=== PATIENT | male | born 1980 | race Caucasian/White ===

== ENCOUNTER 2016-11-10 14:51 | Emergency (ER) | payer OTHER ==
[~2016-11-10] VITALS: Ht 172.7 cm; Wt 95.3 kg
[2016-11-10] MEDS ORDERED: NS 1,000 ML IV ONE (16:30)
[2016-11-10] MEDS ORDERED: KETOROLAC 30 MG/ML VIAL (J1885) IV ONE (16:30)
[2016-11-10 16:33] LABS: ANION GAP 9 MEQ/L (8-16); BLOOD UREA NITROGEN 7 MG/DL (7-18); CALCIUM LEVEL 8.8 MG/DL (8.5-10.1); CARBON DIOXIDE LEVEL 25 MEQ/L (21-32); CHLORIDE LEVEL 109 MEQ/L (98-107); CREATININE FOR GFR 1.11 MG/DL (0.70-1.30); GLOMERULAR FILTRATION RATE > 60.0 (>60); GLUCOSE, FASTING 86 MG/DL (70-105); POTASSIUM SERUM 3.7 MEQ/L (3.5-5.1); SODIUM LEVEL 143 MEQ/L (136-145)
[2016-11-10 16:43] LABS: PROLACTIN 8.9 NG/ML (2.1-17.7)
[2016-11-10 17:01] LABS: BASO % 0.4 % (0.0-1.0); EOS # 0.3 K/mm3 (0.0-0.50); EOS % 2.7 % (0.0-3.0); LARGE UNSTAINED CELL # 0.2 K/mm3 (0.0-0.4); LARGE UNSTAINED CELL % 2.1 % (0.0-4.0); LYMPH # 2.4 K/mm3 (1.5-4.5); LYMPH % 25.7 % (24.0-44.0); MEAN CORPUSCULAR HEMOGLOBIN 29.7 pg (27.0-33.0); MEAN CORPUSCULAR HGB CONC 34.1 g/dl (32.0-36.5); MEAN CORPUSCULAR VOLUME 87.2 fl (80.0-96.0); MONO # 0.8 K/mm3 (0.0-0.8); MONO % 8.6 % (0.0-5.0); NEUTROPHILS # 5.6 K/mm3 (1.8-7.7); NEUTROPHILS % 60.5 % (36.0-66.0); PLATELET COUNT, AUTOMATED 267 k/mm3 (150-450); WHITE BLOOD COUNT 9.3 K/mm3 (4.0-10.0)
--- NOTE | 2016-11-10 17:02 | REP ---
Head CT without contrast: History: New onset seizure. Comparison study: No comparison study. CT findings: Bone window settings demonstrate an intact bony calvarium. There is no evidence of skull fracture or incidental bony calvarial lesion. The visualized paranasal sinuses appear clear. No intraorbital abnormality is seen. On soft tissue window setting images; the lateral, third, and fourth ventricles are normal in size and position. Franco-white differentiation pattern is normal above and below the tentorium. There are is no evidence of intracranial hemorrhage. No mass, edema, infarction, or midline shift is seen. No extra-axial fluid collection is appreciated. Impression: Negative noncontrast head CT. Signed by Darien Millan MD 11/10/2016 04:54 P
[2016-11-10] MEDS ORDERED: tiZANidine 4 MG TAB PO ONE (18:00)
[2016-11-10] MEDS ORDERED: NORCO, ANEXSIA 5/325MG TABLET (HYDROcodone/ACETAMINOPHEN) PO ONE (18:00)
[2016-11-10 18:30] LABS: METHADONE URINE NEGATIVE (NEGATIVE)
[2016-11-10 19:14] VITALS: BP 138/72
== END 2016-11-10 19:17 | disposition home or self-care (01) ==
LOC: EDBD 14:51 → M ED 17:09
DX: R25.8 Other abnormal involuntary movements (principal); F31.9 Bipolar disorder, unspecified; F41.9 Anxiety disorder, unspecified; F43.10 Post-traumatic stress disorder, unspecified; M54.9 Dorsalgia, unspecified; F17.210 Nicotine dependence, cigarettes, uncomplicated
CPT/HCPCS: 70450; 80048; 80306; 84146; 85025; 96361; 96374; 99284; J1885

== ENCOUNTER → 2018-12-21 | Outpatient (REF) ==
--- NOTE | 2018-12-21 14:30 | REP ---
THORACIC SPINE, THREE VIEWS: HISTORY: Degenerative disc disease. The patient is status post T7 to T11 posterior spinal fusion. Metal hardware is present. There is an old compression fracture of the T9 vertebral body with mild height loss. There is no acute fracture or subluxation. The intervertebral discs are normal in height. Anterior osteophytes are present in the mid thoracic spine. IMPRESSION: The patient is status post T7 to T11 posterior spinal fusion. There is anatomic alignment. Electronically Signed by Prakash Shepard MD 12/21/2018 02:45 P
== END ==
LOC: M SMT 13:34
PROVIDERS: ATTEND Internal Medicine
DX: Z02.71 Encounter for disability determination (principal)

== ENCOUNTER → 2019-01-01 | Outpatient (CLI) | payer OTHER ==
[2019-01-01 10:45] LABS: APPEARANCE, URINE HAZY (CLEAR); BACTERIA, URINE AUTO NEGATIVE (NEGATIVE); BILIRUBIN, URINE AUTO NEGATIVE (NEGATIVE); BLOOD, URINE BLOOD NEGATIVE (NEGATIVE); COLOR, URINE AMBER (YELLOW); GLUCOSE, URINE (UA) AUTO NEGATIVE (NEGATIVE); KETONE, URINE AUTO TRACE mg/dL (NEGATIVE); LEUKOCYTE ESTERASE, URINE AUTO NEGATIVE (NEGATIVE); MUCUS, URINE SMALL (NEGATIVE); NITRITE, URINE AUTO NEGATIVE (NEGATIVE); PROTEIN, URINE AUTO NEGATIVE (NEGATIVE); RBC, URINE AUTO 1 /HPF (0-3); SPECIFIC GRAVITY URINE AUTO 1.028 (1.002-1.035); SQUAMOUS EPITHELIAL CELL UR AU 0 /HPF (0-6); WBC, URINE AUTO 1 /HPF (0-3)
[2019-01-01 10:57] LABS: BASO # 0.1 10^3/uL (0.0-0.2); BASO % 0.6 % (0.0-1.0); EOS # 0.6 10^3/uL (0.0-0.50); EOS % 6.5 % (0.0-3.0); HEMATOCRIT 45.8 % (42.0-52.0); HEMOGLOBIN 15.3 g/dl (13.5-17.5); LYMPH # 2.7 10^3/uL (1.5-4.5); MEAN CORPUSCULAR HEMOGLOBIN 30.8 pg (27.0-33.0); MEAN CORPUSCULAR HGB CONC 33.4 g/dl (32.0-36.5); MEAN CORPUSCULAR VOLUME 92.3 fl (80.0-96.0); MONO % 11.3 % (0.0-5.0); NEUTROPHILS # 4.3 10^3/uL (1.8-7.7); NEUTROPHILS % 49.8 % (36.0-66.0); PLATELET COUNT, AUTOMATED 224 10^3/uL (150-450); RED BLOOD COUNT 4.96 10^6/uL (4.30-6.10); WHITE BLOOD COUNT 8.6 10^3/uL (4.0-10.0)
[2019-01-01 11:24] LABS: ALBUMIN 3.7 GM/DL (3.2-5.2); ALT/SGPT 33 U/L (12-78); BILIRUBIN,TOTAL 0.4 MG/DL (0.2-1.0); BLOOD UREA NITROGEN 11 MG/DL (7-18); CALCIUM LEVEL 8.6 MG/DL (8.5-10.1); CARBON DIOXIDE LEVEL 28 MEQ/L (21-32); CHLORIDE LEVEL 108 MEQ/L (98-107); CREATININE FOR GFR 0.88 MG/DL (0.70-1.30); GLOMERULAR FILTRATION RATE > 60.0 (>60); GLUCOSE, FASTING 100 MG/DL (70-100); SODIUM LEVEL 142 MEQ/L (136-145); TOTAL PROTEIN 6.4 GM/DL (6.4-8.2); VALPROIC ACID (DEPAKOTE) 38.3 UG/ML (50.0-100.0)
[2019-01-02 10:22] LABS: HEPATITIS B SURFACE ANTIGEN NEGATIVE (NEGATIVE)
[2019-01-02 10:49] LABS: HEPATITIS C VIRUS ABY INDEX < 0.0 INDEX (<0.8)
[2019-01-02 10:50] LABS: HEPATITIS B CORE ANTIBODY IGM NEGATIVE (NEGATIVE)
[2019-01-02 10:52] LABS: HEPATITIS A ANTIBODY IGM NEGATIVE (NEGATIVE)
== END ==
LOC: M LAB 08:52
PROVIDERS: ATTEND Physician Assistant Medical
DX: Z02.2 Encounter for examination for admission to residential institution (principal)

== ENCOUNTER → 2019-01-01 | Outpatient (CLI) | payer OTHER ==
[2019-01-01 10:00] LABS: HEMATOCRIT 44.7 % (42.0-52.0); MEAN CORPUSCULAR HEMOGLOBIN 30.3 pg (27.0-33.0); MEAN CORPUSCULAR HGB CONC 33.6 g/dl (32.0-36.5); MEAN CORPUSCULAR VOLUME 90.3 fl (80.0-96.0); PLATELET COUNT, AUTOMATED 227 10^3/uL (150-450); RED BLOOD COUNT 4.95 10^6/uL (4.30-6.10); WHITE BLOOD COUNT 8.2 10^3/uL (4.0-10.0)
[2019-01-01 10:31] LABS: ALBUMIN 3.8 GM/DL (3.2-5.2); ALT/SGPT 37 U/L (12-78); BILIRUBIN,TOTAL 0.4 MG/DL (0.2-1.0); BLOOD UREA NITROGEN 10 MG/DL (7-18); CALCIUM LEVEL 8.6 MG/DL (8.5-10.1); CARBON DIOXIDE LEVEL 28 MEQ/L (21-32); CHLORIDE LEVEL 109 MEQ/L (98-107); CREATININE FOR GFR 0.95 MG/DL (0.70-1.30); GLOMERULAR FILTRATION RATE > 60.0 (>60); GLUCOSE, FASTING 99 MG/DL (70-100); POTASSIUM SERUM 3.9 MEQ/L (3.5-5.1); SODIUM LEVEL 143 MEQ/L (136-145); TOTAL PROTEIN 6.5 GM/DL (6.4-8.2)
[2019-01-01 12:19] LABS: CHLAMYDIA DNA AMPLIFICATION NEGATIVE (NEGATIVE); GC DNA AMPLIFICATION NEGATIVE (NEGATIVE)
--- NOTE | 2019-01-01 20:46 | ECGEPIP ---
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 Clincal correlation advised Electronically Signed on 01-01-2019 20:46:31 EDT by Eddie Ch
[2019-01-02 10:25] LABS: HEPATITIS B SURFACE ANTIGEN NEGATIVE (NEGATIVE)
[2019-01-02 10:53] LABS: HEPATITIS C VIRUS ABY INDEX < 0.0 INDEX (<0.8)
[2019-01-02 11:05] LABS: HIV 1&2 SCREEN CENTAUR NEGATIVE (NEGATIVE)
== END ==
LOC: M LAB 08:55
PROVIDERS: ATTEND Family Medicine
DX: F11.20 Opioid dependence, uncomplicated (principal)

== ENCOUNTER → 2019-01-10 | Outpatient (CLI) | payer OTHER ==
[2019-01-10 17:07] LABS: FREE T4 0.69 NG/DL (0.76-1.46); THYROID STIMULATING HORMONE 1.54 uIU/ML (0.358-3.740); VALPROIC ACID (DEPAKOTE) 56.3 UG/ML (50.0-100.0)
== END ==
LOC: M LAB 15:52
PROVIDERS: ATTEND Nurse Practitioner Family
DX: Z51.81 Encounter for therapeutic drug level monitoring (principal)

== ENCOUNTER 2019-02-07 12:39 | Emergency (ER) | payer OTHER ==
[~2019-02-07] VITALS: Ht 172.7 cm; Wt 98.6 kg
[~2019-02-07 12:39] MED LIST: BUSP15TA47 PO; BUSPAR; DEPA1TAB3 PO; GABA-845 PO; MUCI600T31 PO; NALT50TA4 PO; NAPR-837 PO; PROZ40CA PO; SERO1TAB PO
[2019-02-07] MEDS ORDERED: PROP60TA14 PO (12:47)
[2019-02-07] MEDS ORDERED: NS 1,000 ML IV ONE (13:15)
[2019-02-07] MEDS ORDERED: IPRATROPIUM 0.5MG/ALBUTEROL 2.5MG INH SOL UD 3ML (DUONEB)(J7620) NEB ONE (13:15)
[2019-02-07] MEDS ORDERED: ASPIRIN 81 MG CHEW TABLET PO ONE (13:15)
[2019-02-07 13:35] LABS: BASO # 0.1 10^3/uL (0.0-0.2); BASO % 0.4 % (0.0-1.0); EOS # 0.3 10^3/uL (0.0-0.50); HEMATOCRIT 46.1 % (42.0-52.0); HEMOGLOBIN 15.6 g/dl (13.5-17.5); LYMPH # 3.6 10^3/uL (1.5-4.5); LYMPH % 22.2 % (24.0-44.0); MEAN CORPUSCULAR HEMOGLOBIN 31.3 pg (27.0-33.0); MEAN CORPUSCULAR HGB CONC 33.8 g/dl (32.0-36.5); MEAN CORPUSCULAR VOLUME 92.6 fl (80.0-96.0); MONO # 1.5 10^3/uL (0.0-0.8); MONO % 9.1 % (0.0-5.0); NEUTROPHILS # 10.6 10^3/uL (1.8-7.7); NEUTROPHILS % 65.4 % (36.0-66.0); PLATELET COUNT, AUTOMATED 257 10^3/uL (150-450); RED BLOOD COUNT 4.98 10^6/uL (4.30-6.10); WHITE BLOOD COUNT 16.1 10^3/uL (4.0-10.0)
--- NOTE | 2019-02-07 14:12 | REP ---
CHEST, TWO VIEWS: Two views of the chest are performed. There are no prior studies. There is no acute infiltrate or pulmonary edema. The heart is normal in size. The mediastinal silhouette is unremarkable. Metallic rods and screws are seen posteriorly in the mid to lower thoracic spine. There is mild compression deformity of what appears to be the T9 vertebral body. This is unchanged since 12/21/2018. IMPRESSION: No acute pulmonary disease. Electronically Signed by Trey Franco MD 02/09/2019 10:16 A
[2019-02-07] MEDS ORDERED: AZITHROMYCIN 250 MG TAB PO ONE (15:00)
[2019-02-07] MEDS ORDERED: PROAAER10 INH (15:19)
[2019-02-07] MEDS ORDERED: ZITHTAB PO (15:19)
[2019-02-07 15:26] VITALS: BP 139/91
[2019-02-07 15:52] LABS: BLOOD UREA NITROGEN 17 MG/DL (7-18); CALCIUM LEVEL 8.3 MG/DL (8.5-10.1); CARBON DIOXIDE LEVEL 26 MEQ/L (21-32); CHLORIDE LEVEL 110 MEQ/L (98-107); CPK CREATINE PHOSPHOKINASE 225 U/L (39-308); CREATININE FOR GFR 0.97 MG/DL (0.70-1.30); GLOMERULAR FILTRATION RATE > 60.0 (>60); GLUCOSE, FASTING 80 MG/DL (70-100); MB/CK RELATIVE INDEX 0.89 (< OR =4); POTASSIUM SERUM 4.7 MEQ/L (3.5-5.1); SODIUM LEVEL 141 MEQ/L (136-145); TROPONIN I < 0.02 NG/ML (< 0.10)
--- NOTE | 2019-02-07 19:30 | ECGEPIP ---
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
== END 2019-02-07 16:17 | disposition home or self-care (01) ==
LOC: M ED 12:39
DX: J20.9 Acute bronchitis, unspecified (principal); J98.01 Acute bronchospasm; I10 Essential (primary) hypertension; J44.9 Chronic obstructive pulmonary disease, unspecified; F41.9 Anxiety disorder, unspecified; R51 Headache; F31.9 Bipolar disorder, unspecified; F43.10 Post-traumatic stress disorder, unspecified; Z72.0 Tobacco use; F14.21 Cocaine dependence, in remission; Z82.49 Family history of ischemic heart disease and other diseases of the circulatory system; Z79.899 Other long term (current) drug therapy

== ENCOUNTER 2019-09-08 21:28 | Emergency (ER) | payer MEDICAID, OTHER, SELFPAY ==
[~2019-09-08] VITALS: Ht 172.7 cm; Wt 106.4 kg
[~2019-09-08 21:28] MED LIST changes: +PROAAER10 INH; +PROP60TA14 PO; +ZITHTAB PO
[2019-09-08] MEDS ORDERED: chlorproMAZINE 25 MG TAB (Q0161) PO ONE (22:45)
[2019-09-08 23:12] LABS: AMPHETAMINES LEVEL URINE NEGATIVE (NEGATIVE); BARBITURATES URINE NEGATIVE (NEGATIVE); BENZODIAZEPINES URINE NEGATIVE (NEGATIVE); CANNABINOIDS URINE NEGATIVE (NEGATIVE); COCAINE METABOLITE URINE NEGATIVE (NEGATIVE); METHADONE URINE NEGATIVE (NEGATIVE); OPIATES URINE NEGATIVE (NEGATIVE); PHENCYCLIDINE URINE NEGATIVE (NEGATIVE)
[2019-09-08 23:39] LABS: HEMATOCRIT 49.7 % (42.0-52.0); HEMOGLOBIN 16.8 g/dl (13.5-17.5); MEAN CORPUSCULAR HEMOGLOBIN 29.1 pg (27.0-33.0); MEAN CORPUSCULAR HGB CONC 33.8 g/dl (32.0-36.5); PLATELET COUNT, AUTOMATED 300 10^3/uL (150-450); RED BLOOD COUNT 5.78 10^6/uL (4.30-6.10); WHITE BLOOD COUNT 11.7 10^3/uL (4.0-10.0)
[2019-09-08] MEDS ORDERED: CYCL10TA PO (23:54)
[2019-09-09 00:13] LABS: ACETAMINOPHEN LEVEL < 2.0 UG/ML (10.0-30.0); ALBUMIN 3.9 GM/DL (3.2-5.2); ALT/SGPT 39 U/L (12-78); BILIRUBIN,DIRECT 0.1 MG/DL (0.0-0.2); BILIRUBIN,TOTAL 0.2 MG/DL (0.2-1.0); BLOOD UREA NITROGEN 9 MG/DL (7-18); CALCIUM LEVEL 8.8 MG/DL (8.5-10.1); CARBON DIOXIDE LEVEL 27 MEQ/L (21-32); CHLORIDE LEVEL 108 MEQ/L (98-107); CREATININE FOR GFR 0.97 MG/DL (0.70-1.30); ETHYL ALCOHOL (ETHANOL) < 0.003 % (0.000-0.010); GLOMERULAR FILTRATION RATE > 60.0 (>60); GLUCOSE, FASTING 95 MG/DL (70-100); POTASSIUM SERUM 3.6 MEQ/L (3.5-5.1); SALICYLATE LEVEL 2.8 MG/DL (5.0-30.0); SODIUM LEVEL 140 MEQ/L (136-145); TOTAL PROTEIN 7.4 GM/DL (6.4-8.2)
[2019-09-09] MEDS ORDERED: HALOPERIDOL 5 MG/ML VIAL (J1630) IM STA (00:27)
[2019-09-09] MEDS ORDERED: diphenhydrAMINE INJ 50MG/ML VIAL (J1200) IM ONE (00:30)
[2019-09-09 03:53] VITALS: BP 121/75
--- NOTE | 2019-09-09 19:31 | ECGEPIP ---
[facility] - ED Test Date: 2019-09-09 Pat Name: RYAN MITTAL Department: Room: - Gender: Male Support Assistant: CHRISTINA : 1980 Requested By: ÁNGEL HARRIS Order Number: [id number] Reading MD: Marnie Kwon Measurements Intervals [place] Rate: 80 P: 17 [place]: 144 QRS: 8 QRSD: 100 T: 30 QT: 350 QTc: 404 Interpretive Statements SINUS RHYTHM NONSPECIFIC T-WAVE ABNORMALITY DELAYED R WAVE PROGRESSION CW 02/07/[address] T WAVE CHANGES Electronically Signed on 09-09-2019 19:31:03 EST by Marnie Kwon
== END 2019-09-09 04:00 ==
LOC: M ED 21:28
DX: R45.851 Suicidal ideations (principal); F32.9 Major depressive disorder, single episode, unspecified; F19.10 Other psychoactive substance abuse, uncomplicated; J45.909 Unspecified asthma, uncomplicated; F17.200 Nicotine dependence, unspecified, uncomplicated; Z79.899 Other long term (current) drug therapy
CPT/HCPCS: 36415; 80048; 80076; 80307; 84443; 85027; 93005; 96372; 99285; G0480; J1200; J1630; Q0161

== ENCOUNTER 2020-03-24 11:16 | Inpatient (IN) | payer MEDICAID, OTHER ==
[~2020-03-24] VITALS: Ht 172.7 cm; Wt 93.4 kg
[~2020-03-24 11:16] MED LIST changes: +CYCL-707 PO
[2020-03-24 12:45] LABS: HEMATOCRIT 47.4 % (42.0-52.0); HEMOGLOBIN 16.3 g/dl (13.5-17.5); MEAN CORPUSCULAR HEMOGLOBIN 29.9 pg (27.0-33.0); MEAN CORPUSCULAR HGB CONC 34.4 g/dl (32.0-36.5); PLATELET COUNT, AUTOMATED 289 10^3/uL (150-450); RED BLOOD COUNT 5.45 10^6/uL (4.30-6.10); WHITE BLOOD COUNT 5.1 10^3/uL (4.0-10.0)
[2020-03-24 12:54] LABS: AMPHETAMINES LEVEL URINE NEGATIVE (NEGATIVE); BARBITURATES URINE NEGATIVE (NEGATIVE); BENZODIAZEPINES URINE NEGATIVE (NEGATIVE); CANNABINOIDS URINE NEGATIVE (NEGATIVE); COCAINE METABOLITE URINE NEGATIVE (NEGATIVE); METHADONE URINE NEGATIVE (NEGATIVE); OPIATES URINE NEGATIVE (NEGATIVE); PHENCYCLIDINE URINE NEGATIVE (NEGATIVE)
[2020-03-24 13:05] LABS: ACETAMINOPHEN LEVEL < 2.0 UG/ML (10.0-30.0); ALBUMIN 3.5 GM/DL (3.2-5.2); ALT/SGPT 46 U/L (12-78); BILIRUBIN,DIRECT 0.1 MG/DL (0.0-0.2); BILIRUBIN,TOTAL 0.3 MG/DL (0.2-1.0); BLOOD UREA NITROGEN 8 MG/DL (7-18); CALCIUM LEVEL 8.9 MG/DL (8.5-10.1); CARBON DIOXIDE LEVEL 30 MEQ/L (21-32); CHLORIDE LEVEL 102 MEQ/L (98-107); CREATININE FOR GFR 0.82 MG/DL (0.70-1.30); ETHYL ALCOHOL (ETHANOL) < 0.003 % (0.000-0.010); GLOMERULAR FILTRATION RATE > 60.0 (>60); GLUCOSE, FASTING 79 MG/DL (70-100); POTASSIUM SERUM 3.8 MEQ/L (3.5-5.1); SALICYLATE LEVEL 2.9 MG/DL (5.0-30.0); SODIUM LEVEL 136 MEQ/L (136-145); THYROID STIMULATING HORMONE 0.676 uIU/ML (0.358-3.740); TOTAL PROTEIN 6.9 GM/DL (6.4-8.2)
[2020-03-24] MEDS ORDERED: NICOTINE 21MG/24HR 1 EA TRANSDERMAL TD ONE (14:30)
[2020-03-24] MEDS ORDERED: VITA200021 PO (15:09)
[2020-03-24] MEDS ORDERED: HYDR50CA2 PO (15:09)
[2020-03-24] MEDS ORDERED: TOPI100T9 PO (15:09)
[2020-03-24] MEDS ORDERED: CLONI1TA PO (15:09)
[2020-03-24] MEDS ORDERED: FLUO40CA PO (15:09)
[2020-03-24] MEDS ORDERED: QUET100T2 PO (15:09)
[2020-03-24] MEDS ORDERED: FOLI1TAB11 PO (15:09)
[2020-03-24] MEDS ORDERED: GABA800T4 PO (15:09)
[2020-03-24] MEDS ORDERED: METH27TA5 PO (15:09)
[2020-03-24] MEDS ORDERED: LORazepam 1 MG TAB PO STA (18:37)
[2020-03-24] MEDS ORDERED: ACETAMINOPHEN TAB 650MG DOSE (2X325MG) PO PRN (20:15)
[2020-03-24] MEDS ORDERED: MOM 30ML SUSPENSION UDC PO PRN (20:15)
[2020-03-24] MEDS ORDERED: traZODone 50 MG TAB PO PRN (20:15)
[2020-03-24] MEDS ORDERED: LORazepam 2 MG TAB PO PRN (20:15)
[2020-03-24] MEDS ORDERED: OLANZapine 5 MG TAB PO PRN (20:15)
[2020-03-24] MEDS ORDERED: QUEtiapine FUMARATE 100 MG TAB PO SCH (21:00)
[2020-03-24] MEDS: TOPIRAMATE (TopAMAX) 100 MG TAB PO SCH (21:00)
[2020-03-24] MEDS: cloNIDine 0.1 MG TAB PO SCH (21:00)
[2020-03-24] MEDS: THIAMINE 100 MG TAB PO SCH (21:00)
[2020-03-24] MEDS: hydrOXYzine 50 MG TAB PO SCH (21:00)
[2020-03-24] MEDS: GABAPENTIN 400 MG CAP PO SCH (21:00)
[2020-03-24 23:31] VITALS: BP 120/76
[2020-03-25 06:25] VITALS: BP 106/61
[2020-03-25 06:26] VITALS: BP 106/61
[2020-03-25] MEDS: FLUoxetine 20 MG CAP PO SCH (09:13)
[2020-03-25] MEDS: MULTIVITAMINS/MINERALS THERAP 1 TAB PO SCH (09:13)
[2020-03-25] MEDS: FOLIC ACID 1 MG TAB PO SCH (09:13)
[2020-03-25] MEDS: THIAMINE 100 MG TAB PO SCH ×2 (09:13→21:03)
[2020-03-25] MEDS: cloNIDine 0.1 MG TAB PO SCH ×3 (09:13→21:03)
[2020-03-25] MEDS: GABAPENTIN 400 MG CAP PO SCH ×3 (09:13→21:03)
[2020-03-25] MEDS: TOPIRAMATE (TopAMAX) 100 MG TAB PO SCH ×2 (09:14→21:03)
[2020-03-25] MEDS: hydrOXYzine 50 MG TAB PO SCH ×3 (09:15→21:02)
[2020-03-25 10:00] VITALS: BP 106/61
[2020-03-25] MEDS: NICOTINE 21MG/24HR 1 EA TRANSDERMAL TD SCH (10:45)
--- NOTE | 2020-03-25 14:01 | MHHPEPDOC ---
General Legal Status: 9.27 Chief Complaint Patient is a 39 year old Male who reports having suicidal ideation and suicidal gestures the past 24 hours. He states that he has been burning and hitting himself. He also reports that he has stood in traffic 5 times the past day and a half hoping to get hit by traffic History of Present Illness HISTORY OF THE PRESENT ILLNESS: Patient is a 39 -year-old , male, who . Psychiatric Review of Systems Depression (2 or more weeks): depressed mood, anhedonia, insomnia/hypersomnia, feelings of worthlesness, decreased energy, difficulty concentrating, appetite changes, suicidal thoughts Psychosis: auditory hallucination, paranoia Anxiety: gen/non-specific anxiety Anxiety/ 6 months or more of: easily fatigued, sleep disturbance Past Psychiatric History Previous Psychiatric Diagnosis: Report dxs of PTSD, ADHD, Depression, Bipolar and states "I think I am Schizophrenic too" Previous Psychiatric Admissions: Reports 12+ psychiatric admissions in [facility] Suicide Attempts: reports 6+ suicide gestures and several where he overdosed and was admitted to behavioral health Psychiatric Follow-up: Not current with anyone Psychiatric medications: See medication reconciliation Past Medical History Medical Problems Medical history is unremarkable Surgical history - Lipsotripsy Spinal Surgery with metal rods placed Head Injury: No Seizures: No Hospitalizations: Yes Surgeries: Yes Family Medical/Psychiatric HX Medical Problems Reports his mother with Depression an Anxiety Brother with ETOH History Maternal Grandfather with ETOH HIstory Paternal Uncle Hanged himself and also slit his wrists Both sides of the family with history of Heart Disease, Cancer, Diabetes Psychiatric Disorders: Yes Addiction: Yes Suicide Attemps/Completions: Yes Addiction History nicotine, alcohol, cocaine, amphetamines, methamphetamines, heroin Social History Childhood: Growing up with mother and older brother. He was placed in Foster Care was was in and out of his life Abuse/Trauma: Did not report Current Living Situation: Lives in own apartment. Education: Went to the 7th grade and dropped out of school. Was kicked out of home and he has had various jobs Employment: No current employment at this time. 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 Social Support: Poor Legal: Probation currently, was jailed for 2-3 months for possession of credit cards and [employer] Marital: Single, Not Mental Status Examination General Appearance: unkempt, disheveled, ds/not appear stated age, hospital scubs/clothing, other (appears older than his stated age) Build: average Demeanor: guarded Eye Contact: poor, other (had his eyes closed throughout most of the interview) Activity: slowed Behavior: withdrawn, other (apathetic) Speech: clear, slow, low in volume Mood: depressed Affect: flat Thought Process: logical/linear Thought Content (Delusions): none reported Thought Content (Other): guilty, appropriate, coherent Thought Content (Aggressive): none reported Perception (Hallucinations): auditory Perception (Other): none reported Cognition (Impairment of): none reported Cognition(Intelligence Est.): average Oriented: Alert Insight: fair Judgment: Fair Psychosis: Denies Diagnoses Major Depressive Disorder Recurrent Moderate Stimulant Use Disorder Tobacco Use Disorder A-FIB/CHADSVASC A-FIB History Current/History of A-Fib/PAF?: No Age/Risk Factor Scoring CHADSVASC: CHADSVASC Response (Comments) Value Age Risk Factor Age < 65 years old 0 Gender Risk Factor Male 0 Hx of CHF No 0 Hx of HTN No 0 Hx of Stroke/TIA/or VTE No 0 Hx of Diabetes No 0 Hx of Vascular Disease No 0 Total 0 Treatment Treatment ordered: NONE Assessment Patient will be started on home medications and discharged when he is stable Initial Treatment Plan 1. Patient was admitted on a [9.39] status. 2. Complete history was obtained. 3. With patients permission, family will be contacted and database will be expanded. 4. Patients medication regimen will be reviewed and changed accordingly. 5. Patient will be provided with protected environment. 6. Patient will be treated with individual, group, and milieu therapies. 7. Patient will receive supportive psych-education. 8. Discharge planning will commence immediately. 9. Outpatient follow-up treatment will be strongly recommended. 10. The initial treatment plan will focus initially on: * Depression. * Risk for suicide. ESTIMATED LENGTH OF STAY: - DAYS. TIME SPENT COUNSELING AND COORDINATING INITIAL CARE: minutes. Vital Signs Vital Signs Date Time Temp Pulse Resp B/P (MAP) Pulse Ox O2 Delivery O2 Flow Rate FiO2 03/25/20 09:13 106/61 03/25/20 06:26 97.9 58 12 99 Room Air Medications Scheduled Cholecalciferol (Vitamin D3) (Vitamin D3) 50 Mcg Capsule, 50 MCG PO DAILY, (Reported) Clonidine Hcl (Clonidine HCl) 0.1 Mg Tablet, 0.1 MG PO TID, (Reported) Fluoxetine Hcl (Fluoxetine HCl) 40 Mg Capsule, 40 MG PO DAILY, (Reported) Folic Acid (Folic Acid) 1 Mg Tablet, 1 MG PO DAILY, (Reported) Gabapentin (Gabapentin) 800 Mg Tablet, 800 MG PO TID, (Reported) Hydroxyzine Pamoate (Hydroxyzine Pamoate) 50 Mg Capsule, 50 MG PO TID, (Reported) Methylphenidate HCl (Methylphenidate ER) 27 Mg Tab.er.24, 27 MG PO DAILY, (Reported) Quetiapine Fumarate (Quetiapine Fumarate) 100 Mg Tablet, 100 MG PO QHS, (Repo rted) Topiramate (Topiramate) 100 Mg Tablet, 100 MG PO BID, (Reported) Allergies Coded Allergies: No Known Allergies (Unverified , 02/05/19) THAI FOLEY NP Mar 25, 2020 14:01
[2020-03-25 16:04] VITALS: BP 96/54
--- NOTE | 2020-03-25 16:44 | HPEPDOC ---
[facility] Medical History & Physical Date of Admission Mar 25, 2020 Date of Service: Mar 25, 2020 Attending Physician: GREY BROWN DO History and Physical CHIEF COMPLAINT: Depression HISTORY OF PRESENT ILLNESS: 39 y/o M with PMHx Depression who presents with suicidal ideations. Denies CP/SOB/palpitations. No N/V/Abd pain. PAST MEDICAL HISTORY: As per HPI PAST SURGICAL HISTORY: T9fx s/p patsy placement, lithotripsy SOCIAL HISTORY: Smokes 2-3ppd, no alcohol, uses linnea FAMILY HISTORY: Non contributory ALLERGIES: Please see below. REVIEW OF SYSTEMS: HEENT: Denies sore throat/headache CARDIOVASCULAR: Denies chest pain/palpitations RESPIRATORY: Denies shortness of breath/cough GASTROINTESTINAL: denies nausea/vomiting GENITOURINARY: Denies dysuria/urinary urgency. MUSCULOSKELETAL: Denies myalgias/arthralgias NEUROLOGICAL: Denies any focal weakness HOME MEDICATIONS: Please see below. PHYSICAL EXAMINATION: Vitals: (see below) General: No acute distress, laying comfortably in bed. HEENT: Moist mucous membranes. Neck: No JVD or lymphadenopathy Cardiac: RRR, No murmurs Pulm: Clear to auscultation b/l. No wheezing, rhonchi Abd: NT/ND + BS Ext: No edema or cyanosis LABORATORY DATA: See below. ASSESSMENT/PLAN: 1. Depression - management per psych 2. Tobacco abuse - counseling cessation; nicotine patch 3. h/o lithotripsy 4. polysubstance abuse - cessation counseling Monitor BP closely while on clonidine. DVT Prophy: OOB/Amb Please call with questions. Vital Signs Vital Signs Date Time Temp Pulse Resp B/P (MAP) Pulse Ox O2 Delivery O2 Flow Rate FiO2 03/25/20 16:04 98.2 61 14 96/54 (68) 100 Room Air Home Medications Scheduled Cholecalciferol (Vitamin D3) (Vitamin D3) 50 Mcg Capsule, 50 MCG PO DAILY Clonidine Hcl (Clonidine HCl) 0.1 Mg Tablet, 0.1 MG PO TID Fluoxetine Hcl (Fluoxetine HCl) 40 Mg Capsule, 40 MG PO DAILY Folic Acid (Folic Acid) 1 Mg Tablet, 1 MG PO DAILY Gabapentin (Gabapentin) 800 Mg Tablet, 800 MG PO TID Haloperidol (Haloperidol) 5 Mg Tablet, 5 MG PO QHS for antipsychotic Hydroxyzine Pamoate (Hydroxyzine Pamoate) 50 Mg Capsule, 50 MG PO TID Methylphenidate HCl (Methylphenidate ER) 27 Mg Tab.er.24, 27 MG PO DAILY Topiramate (Topiramate) 100 Mg Tablet, 100 MG PO BID Allergies Coded Allergies: No Known Allergies (Unverified , 02/05/19) A-FIB/CHADSVASC A-FIB History Current/History of A-Fib/PAF?: No CAITLIN BOYCE MD Mar 25, 2020 16:44
[2020-03-25 21:00] VITALS: BP 130/84
[2020-03-25] MEDS: haloperidoL 5 MG TAB PO SCH (21:02)
[2020-03-25] MEDS: QUEtiapine FUMARATE 100 MG TAB PO SCH (21:07)
[2020-03-26 06:00] VITALS: BP 94/50
[2020-03-26] MEDS: NICOTINE 21MG/24HR 1 EA TRANSDERMAL TD SCH (08:38)
[2020-03-26] MEDS: cloNIDine 0.1 MG TAB PO SCH ×3 (08:39→21:06)
[2020-03-26] MEDS: FLUoxetine 20 MG CAP PO SCH (08:39)
[2020-03-26] MEDS: MULTIVITAMINS/MINERALS THERAP 1 TAB PO SCH (08:39)
[2020-03-26] MEDS: THIAMINE 100 MG TAB PO SCH ×2 (08:40→21:06)
[2020-03-26] MEDS: GABAPENTIN 400 MG CAP PO SCH ×3 (08:40→21:06)
[2020-03-26] MEDS: TOPIRAMATE (TopAMAX) 100 MG TAB PO SCH ×2 (08:41→21:06)
[2020-03-26] MEDS: FOLIC ACID 1 MG TAB PO SCH (08:41)
[2020-03-26] MEDS: hydrOXYzine 50 MG TAB PO SCH ×3 (08:41→21:06)
[2020-03-26 11:59] VITALS: BP 139/86
--- NOTE | 2020-03-26 12:51 | MHIPNPDOC ---
[facility] [place] Progress Note Progress Note DATE OF SERVICE: 03/26/20 HISTORY: Kobe is a 39 year old Single, Domiciled Male who self presented to ED for suicidal ideation/gestures of standing in traffic and self-harm gestures of hitting himself. Reporting auditory hallucinations. Reports that he had ingested Emy 4 days ago. VITAL SIGNS: See below. NEW TEST RESULTS: . CURRENT MEDICATIONS: See below. MENTAL STATUS EXAMINATION: Patient is a 39-year old male, who is found sleeping in his room, difficult to arouse. He declined to walk to this provider's office. He continued his interview while lying on his bed, eyes closed most of the interview. He continues to complain of auditory hallucinations. He is not engaged in the conversation, guarded and mildly evasive. Speech: Is Normal tone, monosyllabic, impoverished at times Language skills are Fair Thought processes including: slow Thought content: auditory hallucination. Abstract reasoning, and computation: fair. Description of associations: none Description of abnormal or psychotic thoughts: reports auditory hallucinations and suicidal ideations (mild) today Judgment: poor to fair at times Insight: poor to fair at times Orientation: alert and oriented Recent and remote memory: fairly intact Attention span and concentration: fair Language: fair Fund of knowledge: average Mood: depressed Affect: blunted and flat DIAGNOSES: 1. Major depressive disorder, recurrent, moderate 2. Stimulant Use Disorder (Emy) 3. Tobacco Use ASSESSMENT: Patient appears to be reticent in his interview. Does not voice self harm thoughts but refuses to engage with this provider MANAGEMENT PLAN: Patient is not stable for discharge today, reporting continued auditory hallucinations. He reports no depression or suicidal ideation, but appears to be depressed and disingenuous with the interview questions. TIME SPENT: 30 minutes. Vital Signs Vital Signs Date Time Temp Pulse Resp B/P (MAP) Pulse Ox O2 Delivery O2 Flow Rate FiO2 03/26/20 11:59 48 139/86 03/26/20 06:00 98.0 16 03/25/20 16:04 100 Room Air Current Medications Current Medications Medications (Trade) Dose Ordered Sig/Yg Route PRN Reason Start Time Stop Time Status Last Admin Dose Admin Acetaminophen (Tylenol Tab) 650 mg Q6HP PRN PO HEADACHE or DISCOMFORT 03/24/20 20:15 03/25/20 13:27 Al Hydrox/Mg Hydrox/Simethicone (Mylanta) 30 ml Q4HP PRN PO HEARTBURN/INDIGESTION 03/24/20 20:15 Clonidine HCl (Catapres) 0.1 mg TID PO 03/24/20 21:00 03/26/20 08:39 Fluoxetine HCl (PROzac) 40 mg DAILY PO 03/25/20 09:00 03/26/20 08:39 Folic Acid (Folic Acid) 1 mg DAILY PO 03/25/20 09:00 03/26/20 08:41 Gabapentin (Neurontin) 800 mg TID PO 03/24/20 21:00 03/26/20 08:40 Haloperidol (Haldol) 5 mg QHS PO 03/25/20 21:00 03/25/20 21:02 Home Med (Med Rec Complete!) ASDIRECTED XX 03/24/20 15:15 03/24/20 15:14 DC Hydroxyzine HCl (Atarax) 50 mg TID PO 03/24/20 21:00 03/26/20 08:41 Lorazepam (Ativan) 1 mg STAT STAT PO 03/24/20 18:37 03/24/20 18:39 DC 03/24/20 18:43 Lorazepam (Ativan) 2 mg ASDIRECTED PRN PO SEE PROTOCOL 03/24/20 20:15 Magnesium Hydroxide (Milk Of Magnesia) 30 ml DAILYPRN PRN PO CONSTIPATION 03/24/20 20:15 Multivitamins (Theragram-M) 1 tab DAILY PO 03/25/20 09:00 03/26/20 08:39 Nicotine (Nicoderm Cq 21mg) 1 patch DAILY TD 03/25/20 09:00 03/26/20 08:38 Olanzapine (ZyPREXA) 5 mg Q4HP PRN PO AGITATION 03/24/20 20:15 03/25/20 13:29 DC Quetiapine Fumarate (SEROquel) 100 mg QHS PO 03/24/20 21:00 03/25/20 13:29 DC 03/24/20 21:23 Quetiapine Fumarate (SEROquel) 100 mg QHS PO 03/25/20 21:00 03/25/20 21:07 Thiamine HCl (Thiamine HCl) 100 mg BID PO 03/24/20 21:00 03/27/20 09:01 03/26/20 08:40 Topiramate (TopAMAX) 100 mg BID PO 03/24/20 21:00 03/26/20 08:41 Trazodone HCl (Desyrel) 50 mg QHSP PRN PO INSOMNIA 03/24/20 20:15 Cancel Allergies Coded Allergies: No Known Allergies (Unverified , 02/05/19) THAI FOLEY NP Mar 26, 2020 12:51
[2020-03-26 17:18] VITALS: BP 96/52
[2020-03-26 21:00] VITALS: BP 133/89
[2020-03-26] MEDS: QUEtiapine FUMARATE 100 MG TAB PO SCH (21:06)
[2020-03-26] MEDS: haloperidoL 5 MG TAB PO SCH (21:06)
[2020-03-27 06:15] VITALS: BP 106/67
[2020-03-27] MEDS: NICOTINE 21MG/24HR 1 EA TRANSDERMAL TD SCH (09:43)
[2020-03-27] MEDS: GABAPENTIN 400 MG CAP PO SCH ×3 (09:45→20:46)
[2020-03-27] MEDS: TOPIRAMATE (TopAMAX) 100 MG TAB PO SCH ×2 (09:46→20:45)
[2020-03-27] MEDS: cloNIDine 0.1 MG TAB PO SCH ×3 (09:46→20:45)
[2020-03-27] MEDS: FLUoxetine 20 MG CAP PO SCH (09:46)
[2020-03-27] MEDS: FOLIC ACID 1 MG TAB PO SCH (09:47)
[2020-03-27] MEDS: MULTIVITAMINS/MINERALS THERAP 1 TAB PO SCH (09:47)
[2020-03-27] MEDS: THIAMINE 100 MG TAB PO SCH (09:47)
[2020-03-27] MEDS: hydrOXYzine 50 MG TAB PO SCH ×3 (09:55→20:45)
--- NOTE | 2020-03-27 11:08 | MHIPNPDOC ---
[facility] Progress Note Progress Note DATE OF SERVICE: 03/27/20 HISTORY: Patient is a 39 year old Male who self presented to the Emergency Department and reported auditory hallucinations with suicidal ideations VITAL SIGNS: See below. NEW TEST RESULTS: CURRENT MEDICATIONS: See below. MENTAL STATUS EXAMINATION: Patient is a 39-year old male, who is reporting depression, back pain and states that he is "coming off the drugs." Speech: Is normal rate tone and volume. Language skills are Good. Thought processes including: Linear and Goal Oriented. Thought content: Reports Depression and Anxiety. Abstract reasoning, and computation: Fair. Description of associations: None. Description of abnormal or psychotic thoughts: None Judgment: Fair to good. Insight: Fair to good. Orientation: alert and oriented to person, place, time and situation. Recent and remote memory: Intact. Attention span and concentration: Good. Language: Bulgarian/ good command Fund of knowledge: Average Mood: Depressed Affect: Flat DIAGNOSES: 1. Major Depressive Disorder, Recurrent, Moderate 2. Stimulant Use Disorder 3. Tobacco Use Disorder ASSESSMENT: Patient continues to report depression stemming from drug use and psychosis from the same. He is has minor physical complaints of back pain. Reports that he does not feel stable. Patient is withdrawn at times and guarded. He is spontaneous in his responses but is not engaged in the interview. He reports being depressed and his affect is congruent with this. MANAGEMENT PLAN: Prozac increased to 60 mg. Ordered Ultram 50 mg every 12 hours PRN for back pain. TIME SPENT: 35 minutes. Vital Signs Vital Signs Date Time Temp Pulse Resp B/P (MAP) Pulse Ox O2 Delivery O2 Flow Rate FiO2 03/27/20 09:46 128/87 03/27/20 06:15 97.6 59 18 100 Room Air Current Medications Current Medications Medications (Trade) Dose Ordered Sig/Yg Route PRN Reason Start Time Stop Time Status Last Admin Dose Admin Acetaminophen (Tylenol Tab) 650 mg Q6HP PRN PO HEADACHE or DISCOMFORT 03/24/20 20:15 03/25/20 13:27 Al Hydrox/Mg Hydrox/Simethicone (Mylanta) 30 ml Q4HP PRN PO HEARTBURN/INDIGESTION 03/24/20 20:15 Clonidine HCl (Catapres) 0.1 mg TID PO 03/24/20 21:00 03/27/20 09:46 Fluoxetine HCl (PROzac) 40 mg DAILY PO 03/25/20 09:00 03/27/20 10:03 DC 03/27/20 09:46 Fluoxetine HCl (PROzac) 60 mg DAILY PO 03/28/20 09:00 Folic Acid (Folic Acid) 1 mg DAILY PO 03/25/20 09:00 03/27/20 09:47 Gabapentin (Neurontin) 800 mg TID PO 03/24/20 21:00 03/27/20 09:45 Haloperidol (Haldol) 5 mg QHS PO 03/25/20 21:00 03/26/20 21:06 Home Med (Med Rec Complete!) ASDIRECTED XX 03/24/20 15:15 03/24/20 15:14 DC Hydroxyzine HCl (Atarax) 50 mg TID PO 03/24/20 21:00 03/27/20 09:55 Lorazepam (Ativan) 1 mg STAT STAT PO 03/24/20 18:37 03/24/20 18:39 DC 03/24/20 18:43 Lorazepam (Ativan) 2 mg ASDIRECTED PRN PO SEE PROTOCOL 03/24/20 20:15 Magnesium Hydroxide (Milk Of Magnesia) 30 ml DAILYPRN PRN PO CONSTIPATION 03/24/20 20:15 Multivitamins (Theragram-M) 1 tab DAILY PO 03/25/20 09:00 03/27/20 09:47 Nicotine (Nicoderm Cq 21mg) 1 patch DAILY TD 03/25/20 09:00 03/27/20 09:43 Olanzapine (ZyPREXA) 5 mg Q4HP PRN PO AGITATION 03/24/20 20:15 03/25/20 13:29 DC Quetiapine Fumarate (SEROquel) 100 mg QHS PO 03/24/20 21:00 03/25/20 13:29 DC 03/24/20 21:23 Quetiapine Fumarate (SEROquel) 100 mg QHS PO 03/25/20 21:00 03/26/20 21:06 Thiamine HCl (Thiamine HCl) 100 mg BID PO 03/24/20 21:00 03/27/20 09:01 DC 03/27/20 09:47 Topiramate (TopAMAX) 100 mg BID PO 03/24/20 21:00 03/27/20 09:46 Tramadol HCl (Ultram) 50 mg Q12HP PRN PO PAIN 03/27/20 10:00 Trazodone HCl (Desyrel) 50 mg QHSP PRN PO INSOMNIA 03/24/20 20:15 Cancel Allergies Coded Allergies: No Known Allergies (Unverified , 02/05/19) THAI FOLEY NP Mar 27, 2020 11:08
[2020-03-27] MEDS: traMADol 50 MG TAB PO PRN (15:16)
[2020-03-27 16:56] VITALS: BP 109/62
[2020-03-27] MEDS: QUEtiapine FUMARATE 100 MG TAB PO SCH (20:44)
[2020-03-27] MEDS: haloperidoL 5 MG TAB PO SCH (20:45)
[2020-03-28 06:32] VITALS: BP 110/65
[2020-03-28] MEDS: cloNIDine 0.1 MG TAB PO SCH ×3 (09:00→20:35)
[2020-03-28] MEDS: TOPIRAMATE (TopAMAX) 100 MG TAB PO SCH ×2 (09:00→20:35)
[2020-03-28] MEDS: GABAPENTIN 400 MG CAP PO SCH ×3 (09:18→20:32)
[2020-03-28] MEDS: FOLIC ACID 1 MG TAB PO SCH (09:18)
[2020-03-28] MEDS: hydrOXYzine 50 MG TAB PO SCH ×3 (09:19→20:35)
[2020-03-28] MEDS: FLUoxetine 20 MG CAP PO SCH (09:20)
[2020-03-28] MEDS: MULTIVITAMINS/MINERALS THERAP 1 TAB PO SCH (09:20)
[2020-03-28] MEDS: NICOTINE 21MG/24HR 1 EA TRANSDERMAL TD SCH (09:21)
[2020-03-28] MEDS: traMADol 50 MG TAB PO PRN ×2 (09:22→20:33)
[2020-03-28 14:00] VITALS: BP 133/97
[2020-03-28] MEDS: QUEtiapine FUMARATE 100 MG TAB PO SCH (20:35)
[2020-03-28] MEDS: haloperidoL 5 MG TAB PO SCH (20:35)
[2020-03-29] MEDS: MAALOX 30 ML SUSP *UDC PO PRN ×2 (03:31→10:14)
[2020-03-29 06:33] VITALS: BP 121/72
[2020-03-29] MEDS: cloNIDine 0.1 MG TAB PO SCH ×3 (09:34→21:29)
[2020-03-29] MEDS: hydrOXYzine 50 MG TAB PO SCH ×3 (09:35→21:28)
[2020-03-29] MEDS: FOLIC ACID 1 MG TAB PO SCH (09:35)
[2020-03-29] MEDS: TOPIRAMATE (TopAMAX) 100 MG TAB PO SCH ×2 (09:35→21:28)
[2020-03-29] MEDS: MULTIVITAMINS/MINERALS THERAP 1 TAB PO SCH (09:35)
[2020-03-29] MEDS: GABAPENTIN 400 MG CAP PO SCH ×3 (09:35→21:28)
[2020-03-29] MEDS: FLUoxetine 20 MG CAP PO SCH (09:35)
[2020-03-29] MEDS: NICOTINE 21MG/24HR 1 EA TRANSDERMAL TD SCH (09:35)
[2020-03-29] MEDS: traMADol 50 MG TAB PO PRN (09:42)
[2020-03-29 18:29] VITALS: BP 126/58
[2020-03-29] MEDS: haloperidoL 5 MG TAB PO SCH (21:28)
[2020-03-29] MEDS: QUEtiapine FUMARATE 100 MG TAB PO SCH (21:28)
[2020-03-30 06:26] VITALS: BP 103/61
[2020-03-30] MEDS: TOPIRAMATE (TopAMAX) 100 MG TAB PO SCH (08:41)
[2020-03-30] MEDS: MULTIVITAMINS/MINERALS THERAP 1 TAB PO SCH (08:41)
[2020-03-30 08:43] VITALS: BP 114/68
[2020-03-30] MEDS: cloNIDine 0.1 MG TAB PO SCH (08:43)
[2020-03-30] MEDS: hydrOXYzine 50 MG TAB PO SCH (08:44)
[2020-03-30] MEDS: NICOTINE 21MG/24HR 1 EA TRANSDERMAL TD SCH (08:44)
[2020-03-30] MEDS: FOLIC ACID 1 MG TAB PO SCH (08:44)
[2020-03-30] MEDS: GABAPENTIN 400 MG CAP PO SCH (08:44)
[2020-03-30] MEDS: FLUoxetine 20 MG CAP PO SCH (08:44)
[2020-03-30] MEDS: traMADol 50 MG TAB PO PRN (08:44)
[2020-03-30] MEDS ORDERED: HALO5TA PO (11:14)
--- NOTE | 2020-03-30 15:12 | MHDSPDOC ---
[facility] Discharge Summary Discharge Summary DATE OF ADMISSION: Mar 24, 2020 at 20:02 DATE OF DISCHARGE: Mar 30, 2020 at 13:20 DISCHARGE DIAGNOSES: 1. Major Depressive Disorder, Recurrent, Moderate 2. Stimulant Use Disorder 3. Tobacco Use Disorder REASON FOR ADMISSION: Patient reporting suicidal ideation and auditory hallucinations CONSULTANTS INVOLVED: See consultation by MD provider TREATMENT AND PROGRESS ON THE UNIT : Therapy and Medication Management. Patient was continued on his medications but he was discontinued off Seroquel because he was ordered Haldol for auditory hallucinations. He states that he felt he needed Seroquel for his sleep, Trazodone was ordered. HOSPITAL COURSE: Pt was afforded individual and group therapy and medication management. He was withdrawn to his room most of this admission. DISCHARGE ASSESSMENT: Patient is safe for discharge today, he has had no suicidal ideation throughout this admission. He voices depressive symptoms but reports that today his depression is minimal. MENTAL STATUS EXAMINATION ON DISCHARGE: Patient is x85-buxw old male, who is reporting no suicidal or homicidal ideation. He reports that he was "coming down off Emy" and was symptomatic for the withdrawals with reports of auditory hallucinations with suicidal ideation with no planning or intent. In today's interview, patient is reporting no abnormal psychiatric symptoms and states that he is feeling safe for discharge today. He currently resides in his own apartment. He is not employed but reports a past history of employment. He was withdrawn and guarded most of his admission and displays avoidant personality traits. Speech is Clear, normal rate, tone and volume Language skills are Good Thought processes including: Linear and goal oriented Thought content: Decreased auditory hallucinations, denies suicidal/homicidal ideation, denies depression and anxiety Abstract reasoning, and computation: Fair Description of associations: Negative Description of abnormal or psychotic thoughts: Denies and not observed with any abnormal symptoms Judgment: Good Insight: Good Orientation to Alert and oriented to person, place and time Recent and remote memory: Intact Attention span and concentration: Fair Language: Fair Fund of knowledge: Average Mood: Euthymic Affect: Flat MEDICATIONS ON DISCHARGE: See Medication Reconciliation PLAN/FOLLOWUP ARRANGEMENTS: Patient is following up with . The amount of time spent in the coordination of care for this patient was approximately 35 minutes. Vital Signs/I&Os Vital Signs Date Time Temp Pulse Resp B/P (MAP) Pulse Ox O2 Delivery O2 Flow Rate FiO2 03/30/20 09:35 18 03/30/20 08:43 114/68 03/30/20 06:26 97.1 50 03/29/20 18:29 100 Room Air Medications Scheduled Cholecalciferol (Vitamin D3) (Vitamin D3) 50 Mcg Capsule, 50 MCG PO DAILY, (Reported) Clonidine Hcl (Clonidine HCl) 0.1 Mg Tablet, 0.1 MG PO TID, (Reported) Fluoxetine Hcl (Fluoxetine HCl) 40 Mg Capsule, 40 MG PO DAILY, (Reported) Folic Acid (Folic Acid) 1 Mg Tablet, 1 MG PO DAILY, (Reported) Gabapentin (Gabapentin) 800 Mg Tablet, 800 MG PO TID, (Reported) Haloperidol (Haloperidol) 5 Mg Tablet, 5 MG PO QHS for antipsychotic, #7 Hydroxyzine Pamoate (Hydroxyzine Pamoate) 50 Mg Capsule, 50 MG PO TID, (Reported) Methylphenidate HCl (Methylphenidate ER) 27 Mg Tab.er.24, 27 MG PO DAILY, (Reported) Topiramate (Topiramate) 100 Mg Tablet, 100 MG PO BID, (Reported) Allergies Coded Allergies: No Known Allergies (Unverified , 02/05/19) THAI FOLEY NP Mar 30, 2020 15:12
== END 2020-03-30 13:20 | disposition home or self-care (01) | DRG 751 ==
LOC: M ED 11:16 → M ED INP 20:02 → M PSY 22:52
PROVIDERS: ADMIT Psychiatry & Neurology Psychiatry; ATTEND Psychiatry & Neurology Psychiatry
DX: F33.1 Major depressive disorder, recurrent, moderate (principal); F15.10 Other stimulant abuse, uncomplicated; F17.200 Nicotine dependence, unspecified, uncomplicated; Z79.899 Other long term (current) drug therapy

== ENCOUNTER 2020-10-15 09:48 | Inpatient (IN) | payer MEDICAID, OTHER ==
[~2020-10-15] VITALS: Ht 172.7 cm; Wt 107.3 kg
[~2020-10-15 09:48] MED LIST changes: +CLONI1TA PO; +FLUO40CA PO; +FOLI1TAB11 PO; +GABA800T4 PO; +HALO5TA PO; +HYDR50CA2 PO; +METH27TA5 PO; +QUET100T2 PO; +TOPI100T9 PO; +VITA200021 PO
[2020-10-15] MEDS ORDERED: NS 1,000 ML IV ONE ×2 (10:05)
[2020-10-15] MEDS ORDERED: LORazepam 2 MG/ML VIAL IV STA ×2 (10:08→10:35)
[2020-10-15] MEDS ORDERED: QUET200T2 PO (10:24)
[2020-10-15] MEDS ORDERED: NALT50TA4 PO (10:24)
[2020-10-15] MEDS ORDERED: BUSP30TA PO (10:24)
[2020-10-15] MEDS ORDERED: BUPR150T12 PO (10:24)
[2020-10-15] MEDS ORDERED: CLON-412 PO (10:24)
[2020-10-15] MEDS ORDERED: QUET300T2 PO (10:24)
[2020-10-15 10:27] LABS: HEMATOCRIT 45.8 % (42.0-52.0); HEMOGLOBIN 15.5 g/dl (13.5-17.5); MEAN CORPUSCULAR HEMOGLOBIN 28.5 pg (27.0-33.0); MEAN CORPUSCULAR HGB CONC 33.8 g/dl (32.0-36.5); MEAN CORPUSCULAR VOLUME 84.2 fl (80.0-96.0); PLATELET COUNT, AUTOMATED 340 10^3/uL (150-450); RED BLOOD COUNT 5.44 10^6/uL (4.30-6.10); WHITE BLOOD COUNT 28.4 10^3/uL (4.0-10.0)
[2020-10-15] MEDS ORDERED: HALOPERIDOL 5MG/ML VIAL (J1630 PER 1) IV STA ×2 (11:04→12:46)
[2020-10-15] MEDS ORDERED: HALOPERIDOL 5MG/ML VIAL (J1630 PER 1) As Ordered ONE (11:06)
[2020-10-15 11:25] LABS: ACETAMINOPHEN LEVEL < 2.0 UG/ML (10.0-30.0); ALBUMIN 4.7 GM/DL (3.2-5.2); ALT/SGPT 158 U/L (12-78); BILIRUBIN,DIRECT 0.6 MG/DL (0.0-0.2); BILIRUBIN,TOTAL 1.6 MG/DL (0.2-1.0); BLOOD UREA NITROGEN 33 MG/DL (7-18); CALCIUM LEVEL 9.9 MG/DL (8.5-10.1); CARBON DIOXIDE LEVEL 23 MEQ/L (21-32); CHLORIDE LEVEL 103 MEQ/L (98-107); CPK CREATINE PHOSPHOKINASE 12786 U/L (39-308); CREATININE FOR GFR 1.58 MG/DL (0.70-1.30); ETHYL ALCOHOL (ETHANOL) < 0.003 % (0.000-0.010); GLOMERULAR FILTRATION RATE 52.8 (>60); GLUCOSE, FASTING 87 MG/DL (70-100); POTASSIUM SERUM 3.8 MEQ/L (3.5-5.1); SALICYLATE LEVEL 3.4 MG/DL (5.0-30.0); SODIUM LEVEL 144 MEQ/L (136-145); THYROID STIMULATING HORMONE 0.235 uIU/ML (0.358-3.740); TOTAL PROTEIN 8.1 GM/DL (6.4-8.2)
--- NOTE | 2020-10-15 11:48 | REP ---
INDICATION: AMS. COMPARISON: Comparison head CT study November 10, 2016.. TECHNIQUE: Helical scanning is acquired. 5 mm axial images were reformatted. Coronal MPR images were generated. FINDINGS: Bone window settings demonstrate an intact bony calvarium. There is no evidence of skull fracture or incidental bony calvarial lesion. The visualized paranasal sinuses appear clear. No intraorbital abnormality is seen. On soft tissue window setting images; the lateral, third, and fourth ventricles are normal in size and position. Franco-white differentiation pattern is normal above and below the tentorium. There are is no evidence of intracranial hemorrhage. No mass, edema, infarction, or midline shift is seen. No extra-axial fluid collection is appreciated. IMPRESSION: Negative noncontrast head CT. <Electronically signed by Humberto Millan > 10/15/20 1143
--- NOTE | 2020-10-15 11:50 | REP ---
INDICATION: AMS. COMPARISON: None. TECHNIQUE: Helical scanning is acquired and overlapping 2 mm high resolution axial images were generated and reviewed at bone and soft tissue window settings. Coronal and sagittal multiplanar re-formations images are generated. FINDINGS: There is no evidence of cervical spine element fracture. No skull base fracture is seen. Cervical vertebral body heights are preserved. Alignment is normal. Facet joints are normally aligned bilaterally at each cervical level on multiplanar re-formations images. There is no evidence of intraspinal or paraspinal hematoma. No extra vertebral abnormality is seen. IMPRESSION: Negative CT study of the cervical spine without contrast. No fracture seen. <Electronically signed by Humberto Millan > 10/15/20 [id number]
[2020-10-15] MEDS ORDERED: MED REC COMMENT (12:37)
--- NOTE | 2020-10-15 12:52 | REP ---
INDICATION: leukocytoisi. COMPARISON: PA and lateral chest dated 02/07/2019. TECHNIQUE: Portable supine AP view of the chest and portable AP view of the chest with the patient sitting, two views. FINDINGS: The lung yun are clear. Cardiac size is normal. The brett, mediastinum and skeletal structures are unremarkable. Berry rods of the spine are again identified, unchanged. IMPRESSION: Essentially negative portable chest No interval change. <Electronically signed by Trey Kern > 10/15/20 [id number]
[2020-10-15 13:30] LABS: AMPHETAMINES LEVEL URINE POSITIVE (NEGATIVE); BARBITURATES URINE NEGATIVE (NEGATIVE); BENZODIAZEPINES URINE NEGATIVE (NEGATIVE); CANNABINOIDS URINE NEGATIVE (NEGATIVE); COCAINE METABOLITE URINE NEGATIVE (NEGATIVE); METHADONE URINE NEGATIVE (NEGATIVE); OPIATES URINE NEGATIVE (NEGATIVE); PHENCYCLIDINE URINE NEGATIVE (NEGATIVE)
[2020-10-15 14:25] LABS: RSV AMPLIFICATION NEGATIVE (NEGATIVE)
--- NOTE | 2020-10-15 14:27 | HPEPDOC ---
[facility] Medical History & Physical Date of Admission Oct 15, 2020 Date of Service: Oct 15, 2020 History and Physical CHIEF COMPLAINT: AMS, drug overdose HISTORY OF PRESENT ILLNESS: 39 yo M with a hx of polysubstance abuse and depression, brought to ER for aggressive behaviour and reporting to staff that he has been using methamphetamines and MDMA for the past 8 days. He was combative and demonstrating aggressive behaviour, received ativan and a total of 10 mg of haldol. His vitals on arrival were T 98.2. HR 117. BP 183/123. Pulse ox 94% on RA. Labs significant for WBC 18.4. Hgb 15.5. Na 144. K 3.8. BUN 33. Cr 1.58. T bili 1.6. D bili 0.6. AST 460. [place] [address]. UDS positive for amphetaimine. Patient was given 2L NS bolus. Will be admitted to hospitalist service for management of DEXTER and rhabdomyolysis. PAST MEDICAL HISTORY: polysubstance abuse/IVDU depression PAST SURGICAL HISTORY: lithotripsy T9 fracture s/p patsy placement SOCIAL HISTORY: polysubstance abuse FAMILY HISTORY: Patient is currently sedated with haldol, unable to obtain ALLERGIES: Please see below. REVIEW OF SYSTEMS: unable to complete 10 point ROS, as patient is heavily sedated with haldol. HOME MEDICATIONS: Please see below. PHYSICAL EXAMINATION: VITAL SIGNS: please see below General: patient is sleeping. flushed. disheveled appearance. HEENT: PERRLA, EOMI, sclerae clear Respiratory: overall lungs CTAB CVS: RRR, normal S1, S2, no murmurs Abdo: soft, no masses, no hepatosplenomegaly, BS+, no rebound tenderness Extremities: no edema, pulses 2+ Neuro: somnolent,asleep, unable to participate in neuro exam Psych: per ER very combative, was given haldol LABORATORY DATA: See below. IMAGING: CT head (10/15/20): Negative noncontrast head CT. CT spine wo contrast (10/15/20): Negative CT study of the cervical spine without contrast. No fracture seen. CXR (10/15/20): Essentially negative portable chest No interval change. MICROBIOLOGY: Please see below. ASSESSMENT: 39 yo M with hx of depression and polysubstance abuse, admitted to hospitalist service for DEXTER and rhabdomyolysis likely secondary to drug overdose with MDMA. Patient was combative and aggressive with ER sta . PLAN: Agitation/psychosis likely 2/2 drug overdose - 2/2 methamphetiamine and MDMA use for past 8 days - hx of IVDU - required Ativan, Haldol 5 x 2 times in ER for significant agitation and agressive behaviour - neuro checks - 1:1 sitter - psychiatric eval once medically stable. - resume home meds: seroquel Rhabdomyolysis/pre-renal DEXTER - 2/2 dehydration, in context of prolonged MDMA use - Cr 1.58. GFR 52.8. [place] 33. [place] [address] - s/p NS bolus in ER - c/w NS at 175 cc/hr - continue to trend CPK Transaminitis/hyperbilirubinemia - AST 460. ALT 158. ALP 120 - T bili 1.6. D bili 0.6 - possible related to shock liver 2/2 dehydration - ordered liver US - check hepatitis panel - c/w IVF Leukocytosis - WBC 28.4. - likely reactive 2/2 drug OD, rhabdo and fluid depletion Depression/anxiety - resume wellbutrin, buspar Low TSH - TSH 0.235 - obtain FT4 - repeat TFTs outpatient as likely skewed by acute illness. DVT ppx: heparin 5000 q8h SC. Dispo: pending clinical improvement. Vital Signs Vital Signs Date Time Temp Pulse Resp B/P (MAP) Pulse Ox O2 Delivery O2 Flow Rate FiO2 10/15/20 12:15 98.7 102 24 129/71 (90) 96 Room Air Laboratory Data Labs 24H Laboratory Tests 2 10/15/20 10:04: Nucleated Red Blood Cells % (auto) 0.0, Anion Gap 18H, Glomerular Filtration Rate 52.8L, Calcium Level 9.9, Total Bilirubin 1.6H, Direct Bilirubin 0.6H, Aspartate Amino Transf (AST/SGOT) 460H, Alanine Aminotransferase (ALT/SGPT) 158H, Alkaline Phosphatase 120H, Total Creatine Kinase 84676W, Total Protein 8.1, Albumin 4.7, Albumin/Globulin Ratio 1.4, Thyroid Stimulating Hormone (TSH) 0.235L, Salicylates Level 3.4L, Acetaminophen Level < 2.0L, Ethyl Alcohol Level < 0.003 10/15/20 12:55: Urine Myoglobin POSITIVE, Urine Opiates Screen NEGATIVE, Urine Methadone Screen NEGATIVE, Urine Barbiturates Screen NEGATIVE, Urine Phencyclidine Screen NEGATIVE, Urine Amphetamines Screen POSITIVEH, Urine Benzodiazepines Screen NEGATIVE, Urine Cocaine Metabolite Screen NEGATIVE, Urine Cannabinoids Screen NEGATIVE CBC/BMP Laboratory Tests 10/15/20 10:04 Home Medications Scheduled Bupropion Hcl (Bupropion Xl) 150 Mg Tab.er.24h, 150 MG PO DAILY Buspirone HCl (Buspirone HCl) 30 Mg Tablet, 30 MG PO BID Naltrexone HCl (Naltrexone HCl) 50 Mg Tablet, 50 MG PO QHS Pantoprazole Sodium (Pantoprazole Sodium) 40 Mg Tablet.dr, 40 MG PO DAILY Quetiapine Fumarate (Quetiapine Fumarate) 200 Mg Tablet, 200 MG PO DAILY Quetiapine Fumarate (Quetiapine Fumarate) 300 Mg Tablet, 300 MG PO QHS Allergies Coded Allergies: No Known Allergies (Unverified , 02/05/19) A-FIB/CHADSVASC A-FIB History Current/History of A-Fib/PAF?: No Current PO Anticoag Therapy: No MINDY NUÑEZ MD Oct 15, 2020 14:27
[2020-10-15 14:29] LABS: FREE T4 1.74 NG/DL (0.76-1.46)
[2020-10-15] MEDS ORDERED: MOM 30ML SUSPENSION UDC PO PRN (14:30)
[2020-10-15] MEDS ORDERED: ACETAMINOPHEN TAB 650MG DOSE (2X325MG) PO PRN (14:30)
[2020-10-15] MEDS: NS 1,000 ML IV SCH ×2 (15:30→22:46)
[2020-10-15 16:13] LABS: HEPATITIS B SURFACE ANTIGEN NEGATIVE (NEGATIVE)
[2020-10-15 16:18] VITALS: BP 144/79
[2020-10-15] MEDS: HEPARIN SOD (PORCINE) 5000UNITS/ML 1ML VIAL/SYRINGE SC SCH ×2 (16:28→21:20)
[2020-10-15 16:42] LABS: HEPATITIS B CORE ANTIBODY IGM NEGATIVE (NEGATIVE)
[2020-10-15 16:43] LABS: HEPATITIS A ANTIBODY IGM NEGATIVE (NEGATIVE)
--- NOTE | 2020-10-15 16:46 | ECGEPIP ---
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
[2020-10-15] MEDS ORDERED: HALOPERIDOL 5MG/ML VIAL (J1630 PER 1) IM PRN (17:00)
[2020-10-15 20:00] VITALS: BP 125/73
[2020-10-15] MEDS: DOCUSATE SODIUM 100MG CAPSULE PO SCH ×2 (21:00→21:21)
[2020-10-15] MEDS ORDERED: QUEtiapine FUMARATE 100 MG TAB PO SCH (21:00)
[2020-10-15] MEDS: QUEtiapine FUMARATE 100 MG TAB PO SCH (21:21)
[2020-10-15] MEDS: busPIRone 10 MG TAB PO SCH (21:21)
[2020-10-16] VITALS: BP 155/76
[2020-10-16 04:00] VITALS: BP 129/81
[2020-10-16] MEDS: NS 1,000 ML IV SCH ×4 (04:41→20:30)
[2020-10-16 05:44] LABS: BASO % 0.1 % (0.0-1.0); EOS # 0.4 10^3/uL (0.0-0.5); EOS % 3.1 % (0.0-3.0); HEMATOCRIT 37.1 % (42.0-52.0); LYMPH # 1.6 10^3/uL (1.5-5.0); LYMPH % 11.4 % (24.0-44.0); MEAN CORPUSCULAR HEMOGLOBIN 29.1 pg (27.0-33.0); MEAN CORPUSCULAR HGB CONC 34.5 g/dl (32.0-36.5); MEAN CORPUSCULAR VOLUME 84.3 fl (80.0-96.0); MONO # 1.1 10^3/uL (0.0-0.8); MONO % 7.9 % (2.0-8.0); NEUTROPHILS % 76.9 % (36.0-66.0); WHITE BLOOD COUNT 14.3 10^3/uL (4.0-10.0)
[2020-10-16] MEDS: HEPARIN SOD (PORCINE) 5000UNITS/ML 1ML VIAL/SYRINGE SC SCH ×3 (05:45→20:29)
[2020-10-16 05:46] LABS: HEMOGLOBIN 12.8 g/dl (13.5-17.5); PLATELET COUNT, AUTOMATED 237 10^3/uL (150-450)
[2020-10-16 06:21] LABS: ALT/SGPT 107 U/L (12-78); BILIRUBIN,TOTAL 0.8 MG/DL (0.2-1.0); BLOOD UREA NITROGEN 13 MG/DL (7-18); CALCIUM LEVEL 7.8 MG/DL (8.5-10.1); CARBON DIOXIDE LEVEL 26 MEQ/L (21-32); CHLORIDE LEVEL 111 MEQ/L (98-107); GLOMERULAR FILTRATION RATE > 60.0 (>60); GLUCOSE, FASTING 102 MG/DL (70-100); MAGNESIUM LEVEL 2.4 MG/DL (1.8-2.4); POTASSIUM SERUM 3.2 MEQ/L (3.5-5.1); SODIUM LEVEL 144 MEQ/L (136-145); TOTAL PROTEIN 5.8 GM/DL (6.4-8.2)
--- NOTE | 2020-10-16 08:07 | REP ---
INDICATION: hyperbilirubinemia, transaminitis. COMPARISON: None. TECHNIQUE: Right upper quadrant sonography. FINDINGS: Scanning through the right upper quadrant the abdomen demonstrates a normal sized and walled gallbladder without evidence of stone or polyp. There is evidence of fatty infiltration of the liver. No focal liver lesion is appreciated. Scan quality is inhibited some degree by bowel gas and patient positioning limitations. There is no evidence of ascites. Limited views of pancreas show no abnormality. Common bile duct is normal measuring 0.6 cm in greatest diameter. No right renal abnormality is noted. The right kidney measures 11.5 x 6.3 x 5.6 cm.. IMPRESSION: Evidence of fatty infiltration of the liver. Otherwise negative right upper quadrant sonogram. <Electronically signed by Humberto Millan > 10/16/20 [id number]
[2020-10-16] MEDS ORDERED: POTASSIUM CHLORIDE 10 MEQ SR TABLET PO ONE ×2 (08:20→12:00)
[2020-10-16 09:20] LABS: CPK CREATINE PHOSPHOKINASE 5630 U/L (39-308)
[2020-10-16] MEDS: busPIRone 10 MG TAB PO SCH ×2 (09:33→20:26)
[2020-10-16] MEDS: QUEtiapine FUMARATE 200 MG TAB PO SCH (09:34)
[2020-10-16] MEDS: buPROPion **XL** TABLET 150MG (WELLBUTRIN XL) PO SCH (09:34)
[2020-10-16] MEDS: DOCUSATE SODIUM 100MG CAPSULE PO SCH ×2 (09:34→20:27)
[2020-10-16 10:00] VITALS: BP 130/73
[2020-10-16 12:00] VITALS: BP 144/79
--- NOTE | 2020-10-16 15:40 | REP ---
INDICATION: urinary retention. COMPARISON: None. TECHNIQUE: Multiple sonographic images of the kidneys. FINDINGS: The right kidney measures 11.5 x 6.9 x 5.9 cm. The left kidney measures 11.3 x 6.1 x 5.7 cm. The kidneys are normal size. Renal cortical echogenicity is normal bilaterally. There is no hydronephrosis or hydroureter on the right or the left. There are no renal calculi. There are no solid or cystic renal masses. Bladder: With color Doppler assessment we are we are unable to identify ureteral jets into the bladder. However, there is no hydronephrosis. There is a fairly large volume of debris layering in the bladder base. IMPRESSION: Fairly large volume of debris layering in the bladder base. No hydronephrosis. Otherwise, negative renal ultrasound. <Electronically signed by Trey Kern > 10/16/20 [id number]
--- NOTE | 2020-10-16 15:45 | MHCRPDOC ---
[facility] Consultation Consultation DATE OF CONSULTATION: 10/16/20 CONSULTATION REQUESTED BY: Dr [place] REASON FOR CONSULTATION: Evaluate patient mental status and consideration of disposition. RELEVANT HISTORY: HISTORY OF PRESENT ILLNESS: 39 yo M with a hx of polysubstance abuse and depression, brought to ER for aggressive behaviour and reporting to staff that he has been using methamphetamines and MDMA for the past 8 days. He was combative and demonstrating aggressive behaviour, received ativan and a total of 10 mg of haldol. His vitals on arrival were T 98.2. HR 117. BP 183/123. Pulse ox 94% on RA. Labs significant for WBC 18.4. Hgb 15.5. Na 144. K 3.8. BUN 33. Cr 1.58. T bili 1.6. D bili 0.6. AST 460. [place] [address]. UDS positive for amphetaimine. Patient was given 2L NS bolus. Will be admitted to hospitalist service for management of DEXTER and rhabdomyolysis. . PAST PSYCHIATRIC HISTORY: 6 day admission 2019 REASON FOR ADMISSION: Patient reporting suicidal ideation and auditory hallucinations CONSULTANTS INVOLVED: See consultation by MD provider TREATMENT AND PROGRESS ON THE UNIT : Therapy and Medication Management. Patient was continued on his medications but he was discontinued off Seroquel because he was ordered Haldol for auditory hallucinations. He states that he felt he needed Seroquel for his sleep, Trazodone was ordered. HOSPITAL COURSE: Pt was afforded individual and group therapy and medication management. He was withdrawn to his room most of this admission. DISCHARGE ASSESSMENT: Patient is safe for discharge today, he has had no suicidal ideation throughout this admission. He voices depressive symptoms but reports that today his depression is minimal. MENTAL STATUS EXAMINATION ON DISCHARGE: Patient is [id number] old male, who is reporting no suicidal or homicidal ideation. He reports that he was "coming down off Emy" and was symptomatic for the withdrawals with reports of auditory hallucinations with suicidal ideation with no planning or intent. In today's interview, patient is reporting no abnormal psychiatric symptoms and states that he is feeling safe for discharge today. He currently resides in his own apartment. He is not employed but reports a past history of employment. He was withdrawn and guarded most of his admission and displays avoidant personality traits. Speech is Clear, normal rate, tone and volume Today I interviewed patient 10/16/2020 . He states he is here for "drugs, I guess". States he took Emy, the day before yesterday. He is not feeling great. He states his medical history is negative. His surgical history is positive for a broken thoracic vertebra. He has no medical doctor. He has had numerous psychiatric admissions at [facility] because she "lost my mind". He is supposed to be followed at [facility] for drug use and and psychiatric issues. He states he was last seen there approximately 7 months ago. He is not presently suicidal. He has no place to live. He is homeless. He stays at hotels using his own money from the [facility]. He is denying suicidal and homicidal ideation. 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 Patient is very sedated during this interview FAMILY HISTORY: Mother: Not applicable at this time Father: Not applicable at this time Siblings: Not applicable at this time Children: Not applicable at this time PERSONAL AND SOCIAL HISTORY: The patient was born and raised in [place]. Resides in: [place] Marital Status: S Single Children:. 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 Positive LEGAL HISTORY: . MENTAL STATUS EXAMINATION: Patient is a 39-year old male, who is sedated with eyes closed, mumbling Speech is garbled. Language skills are. Limited at this time. Thought processes including: Short answers, generally clear, but garbled. Thought content:. Answers questions only. Abstract reasoning, and computation: Cannot be determined. Description of associations:. No loose association. Description of abnormal or psychotic thoughts:. No noticeable psychotic thought. Judgment:, Poor. Insight:, Poor. Orientation to 3. Recent and remote memory:, Is essentially intact as far as can be determined. Attention span and concentration:, Poor. Language: No gross disturbance. Fund of knowledge: Reasonable. It cannot be determined. Mood:. Euthymic sedated. Affect: Eyes closed sedated. DIAGNOSIS: 1. Substance abuse. PLAN: 1. Will wait for patient to clear for any further conclusions. . Vital Signs Vital Signs Date Time Temp Pulse Resp B/P (MAP) Pulse Ox O2 Delivery O2 Flow Rate FiO2 10/16/20 12:00 99.2 102 18 144/79 (100) 94 Room Air Laboratory Data 24H Labs Laboratory Tests 2 10/16/20 05:16: Immature Granulocyte % (Auto) 0.6, Neutrophils (%) (Auto) 76.9H, Lymphocytes (%) (Auto) 11.4L, Monocytes (%) (Auto) 7.9, Eosinophils (%) (Auto) 3.1H, Basophils (%) (Auto) 0.1, Neutrophils # (Auto) 11.0H, Lymphocytes # (Auto) 1.6, Monocytes # (Auto) 1.1H, Eosinophils # (Auto) 0.4, Basophils # (Auto) 0.0, Nucleated Red Blood Cells % (auto) 0.0, Anion Gap 7L, Glomerular Filtration Rate > 60.0, Calcium Level 7.8#L, Magnesium Level 2.4, Total Bilirubin 0.8, Aspartate Amino Transf (AST/SGOT) 204H, Alanine Aminotransferase (ALT/SGPT) 107H, Alkaline Phosphatase 83, Total Creatine Kinase 5630H, Total Protein 5.8#L, Albumin 3.0#L, Albumin/Globulin Ratio 1.1 Home Medications Current Medications Current Medications Medications (Trade) Dose Ordered Sig/Yg Route PRN Reason Start Time Stop Time Status Last Admin Dose Admin Acetaminophen (Tylenol Tab) 650 mg Q4H PRN PO PAIN OR FEVER 10/15/20 14:30 Al Hydrox/Mg Hydrox/Simethicone (Mylanta) 30 ml DAILY PRN PO DYSPEPSIA 10/15/20 14:30 Bupropion HCl (Wellbutrin Xl) 150 mg DAILY PO 10/16/20 09:00 10/16/20 09:34 Buspirone HCl (Buspar) 30 mg BID PO 10/15/20 21:00 10/16/20 09:33 Docusate Sodium (Colace) 100 mg BID PO 10/15/20 21:00 10/16/20 09:34 Haloperidol (Haldol) 2 mg Q6HP PRN IM AGITATION 10/15/20 17:00 Haloperidol (Haldol) 5 mg STAT STAT IV 10/15/20 11:04 10/15/20 11:05 DC 10/15/20 11:06 Haloperidol (Haldol) 5 mg STAT STAT IV 10/15/20 12:46 10/15/20 12:47 DC 10/15/20 12:50 Heparin Sodium (Porcine) (Heparin) 5,000 units Q8H SC 10/15/20 14:00 10/16/20 13:16 Home Med (Med Rec Complete!) ASDIRECTED XX 10/15/20 12:40 10/15/20 12:40 DC Lorazepam (Ativan) 1 mg STAT STAT IV 10/15/20 10:08 10/15/20 10:09 DC 10/15/20 10:17 Lorazepam (Ativan) 1 mg STAT STAT IV 10/15/20 10:35 10/15/20 10:40 DC 10/15/20 11:06 Magnesium Hydroxide (Milk Of Magnesia) 30 ml DAILY PRN PO CONSTIPATION 10/15/20 14:30 Quetiapine Fumarate (SEROquel) 200 mg DAILY PO 10/16/20 09:00 10/16/20 09:34 Quetiapine Fumarate (SEROquel) 300 mg QHS PO 10/15/20 21:00 10/15/20 17:01 DC Quetiapine Fumarate (SEROquel) 300 mg QHS PO 10/15/20 21:00 10/15/20 21:21 Sodium Chloride 1,000 ml @ 175 mls/hr Q5H43M IV 10/15/20 14:35 10/16/20 14:36 Scheduled Bupropion Hcl (Bupropion Xl) 150 Mg Tab.er.24h, 150 MG PO DAILY, (Reported) Buspirone HCl (Buspirone HCl) 30 Mg Tablet, 30 MG PO BID, (Reported) Naltrexone HCl (Naltrexone HCl) 50 Mg Tablet, 50 MG PO QHS, (Reported) Quetiapine Fumarate (Quetiapine Fumarate) 200 Mg Tablet, 200 MG PO DAILY, (Reported) Quetiapine Fumarate (Quetiapine Fumarate) 300 Mg Tablet, 300 MG PO QHS, (Reported) Miscellaneous Medications [Med Rec Comment] , (Reported) MED LIST OBTAINED FROM PHARMACY Allergies Coded Allergies: No Known Allergies (Unverified , 02/05/19) MINA LEMUS MD Oct 16, 2020 15:45
[2020-10-16 16:00] VITALS: BP 138/74
[2020-10-16 20:00] VITALS: BP 140/69
[2020-10-16] MEDS: QUEtiapine FUMARATE 100 MG TAB PO SCH (21:11)
--- NOTE | 2020-10-16 23:20 | IPNPDOC ---
Date Seen The patient was seen on 10/16/20. Progress Note SUBJECTIVE: Patient seen and examined at bedside. No acute events overnight. This morning, having difficulty urinating bladder scan showing over 900 mL in the bladder. Patient seems, although somnolent and difficult to arouse at times. He is, however, answering to his name and is able to answer simple yes and no questions. His chest pressure as above, nausea, vomiting, diarrhea. OBJECTIVE PHYSICAL EXAMINATION: VITAL SIGNS: please see below General: Somnolent, not in acute distress HEENT: PERRLA, EOMI, sclerae clear Neck: supple, normal ROM, no JVD Respiratory: lungs CTAB, no wheeze, no rales, no crackles CVS: RRR, normal S1, S2, no murmurs Abdo: From lower abdomen, no masses, no hepatosplenomegaly, BS+, no rebound tenderness Extremities: no edema, pulses 2+ MSK: no joint deformities, normal ROM Neuro: no focal neuro deficits, moving all 4 extremities, CN2-12 intact. Strength 5/5 in all 4 extremities. No nystagmus. Psych: calm, cooperative, AAO x 3 LABORATORY DATA, IMAGING STUDIES, MICROBIOLOGY: Please see below. Renal ultrasound (10/16/20) Fairly large volume of debris layering in the bladder base. No hydronephrosis. Otherwise, negative renal ultrasound. Liver ultrasound (10/16/20): IMPRESSION: Evidence of fatty infiltration of the liver. Otherwise negative right upper quadrant sonogram. DVT prophylaxis ordered?: Heparin, SCDs. ASSESSMENT AND PLAN:39 yo M with hx of depression and polysubstance abuse, admitted to hospitalist service for DEXTER and rhabdomyolysis likely secondary to drug overdose with MDMA. Patient was combative and aggressive with ER staff. . PLAN: Agitation/psychosis likely 2/2 drug overdose - 2/2 methamphetiamine and MDMA use for past 8 days - hx of IVDU - required Ativan, Haldol 5 x 2 times in ER for significant agitation and agressive behaviour - neuro checks - 1:1 sitter - psychiatric eval once medically stable. - resume home meds: seroquel Rhabdomyolysis/pre-renal DEXTER - 2/2 dehydration, in context of prolonged MDMA use - Cr 1.58. GFR 52.8. [place] 33[place] [address] downto 5600 - s/p NS bolus in ER - c/w NS at 175 cc/hr - continue to trend CPK Hypokalemia , Potassium 3.2. Replace. Repeat BMP. Urinary retention Straight cath approximately 900 mL in the bladder. This morning Also related to combination of methamphetamine use and MDMA An ultrasound showing significant amount of debris at the bottom of the bladder We'll consult urology if continues to retain urine. Transaminitis/hyperbilirubinemia Transaminases downtrending. ALP elevation resolved. Hyperbilirubinemia, resolved. - possible related to shock liver 2/2 dehydration - ordered liver US - reviewed as above - check hepatitis panel - c/w IVF Leukocytosis - WBC 28.4. - likely reactive 2/2 drug OD, rhabdo and fluid depletion Depression/anxiety - resume wellbutrin, buspar Low TSH - TSH 0.235 - obtain FT4 - repeat TFTs outpatient as likely skewed by acute illness. DVT ppx: heparin 5000 q8h SC. Dispo: pending clinical improvement. VS, I&O, 24H, Fishbone Vital Signs/I&O Vital Signs Date Time Temp Pulse Resp B/P (MAP) Pulse Ox O2 Delivery O2 Flow Rate FiO2 10/16/20 20:00 99.7 70 18 140/69 (92) 100 Room Air I&O- Last 24 Hours up to 6 AM 10/16/20 06:00 Intake Total 5515 ml Output Total 0 ml Balance 5515 ml Laboratory Data 24H LABS Laboratory Tests 2 10/16/20 05:16: Immature Granulocyte % (Auto) 0.6, Neutrophils (%) (Auto) 76.9H, Lymphocytes (%) (Auto) 11.4L, Monocytes (%) (Auto) 7.9, Eosinophils (%) (Auto) 3.1H, Basophils (%) (Auto) 0.1, Neutrophils # (Auto) 11.0H, Lymphocytes # (Auto) 1.6, Monocytes # (Auto) 1.1H, Eosinophils # (Auto) 0.4, Basophils # (Auto) 0.0, Nucleated Red Blood Cells % (auto) 0.0, Anion Gap 7L, Glomerular Filtration Rate > 60.0, Calcium Level 7.8#L, Magnesium Level 2.4, Total Bilirubin 0.8, Aspartate Amino Transf (AST/SGOT) 204H, Alanine Aminotransferase (ALT/SGPT) 107H, Alkaline Phosphatase 83, Total Creatine Kinase 5630H, Total Protein 5.8#L, Albumin 3.0#L, Albumin/Globulin Ratio 1.1 10/16/20 21:10: Urine Color YELLOW, Urine Appearance CLOUDYH, Urine pH 6.0, Urine Specific [place] 1.015, Urine Protein NEGATIVE, Urine Glucose (UA) NEGATIVE, Urine Ketones 1+H, Urine Blood NEGATIVE, Urine Nitrite NEGATIVE, Urine Bilirubin NEGATIVE, Urine Urobilinogen 0.2, Urine Leukocyte Esterase NEGATIVE, Urine WBC (Auto) 2, Urine RBC (Auto) 1, Urine Hyaline Casts (Auto) 0, Urine Bacteria (Auto) NEGATIVE, Urine Squamous Epithelial Cells 0, Urine Calcium Carbonate Cryst(Auto) SMALL, Urine Sperm (Auto) CBC/BMP Laboratory Tests 10/16/20 05:16 MINDY NUÑEZ MD Oct 16, 2020 23:20
[2020-10-17] VITALS: BP 127/66
[2020-10-17] MEDS: NS 1,000 ML IV SCH ×2 (00:53→06:53)
[2020-10-17 04:00] VITALS: BP 140/71
[2020-10-17] MEDS: HEPARIN SOD (PORCINE) 5000UNITS/ML 1ML VIAL/SYRINGE SC SCH ×3 (05:20→22:03)
[2020-10-17 06:45] LABS: BASO # 0.1 10^3/uL (0.0-0.2); BASO % 0.9 % (0.0-1.0); EOS # 0.8 10^3/uL (0.0-0.5); EOS % 11.9 % (0.0-3.0); HEMATOCRIT 36.6 % (42.0-52.0); LYMPH # 2.3 10^3/uL (1.5-5.0); LYMPH % 34.3 % (24.0-44.0); MEAN CORPUSCULAR HEMOGLOBIN 28.4 pg (27.0-33.0); MEAN CORPUSCULAR HGB CONC 32.8 g/dl (32.0-36.5); MEAN CORPUSCULAR VOLUME 86.5 fl (80.0-96.0); MONO # 0.7 10^3/uL (0.0-0.8); MONO % 10.6 % (2.0-8.0); NEUTROPHILS # 2.8 10^3/uL (1.5-8.5); NEUTROPHILS % 41.7 % (36.0-66.0); PLATELET COUNT, AUTOMATED 248 10^3/uL (150-450); RED BLOOD COUNT 4.23 10^6/uL (4.30-6.10); WHITE BLOOD COUNT 6.8 10^3/uL (4.0-10.0)
[2020-10-17 07:10] LABS: ALBUMIN 2.5 GM/DL (3.2-5.2); ALT/SGPT 88 U/L (12-78); BILIRUBIN,TOTAL 0.2 MG/DL (0.2-1.0); BLOOD UREA NITROGEN 6 MG/DL (7-18); CALCIUM LEVEL 7.6 MG/DL (8.5-10.1); CARBON DIOXIDE LEVEL 26 MEQ/L (21-32); CHLORIDE LEVEL 116 MEQ/L (98-107); CREATININE FOR GFR 0.71 MG/DL (0.70-1.30); GLOMERULAR FILTRATION RATE > 60.0 (>60); GLUCOSE, FASTING 118 MG/DL (70-100); MAGNESIUM LEVEL 1.9 MG/DL (1.8-2.4); SODIUM LEVEL 149 MEQ/L (136-145); TOTAL PROTEIN 5.1 GM/DL (6.4-8.2)
[2020-10-17 07:24] VITALS: BP 129/62
[2020-10-17] MEDS ORDERED: POTASSIUM CHLORIDE 10 MEQ SR TABLET PO ONE ×2 (08:15→12:00)
[2020-10-17] MEDS: busPIRone 10 MG TAB PO SCH ×2 (09:15→22:03)
[2020-10-17] MEDS: buPROPion **XL** TABLET 150MG (WELLBUTRIN XL) PO SCH (09:16)
[2020-10-17] MEDS: DOCUSATE SODIUM 100MG CAPSULE PO SCH ×2 (09:16→22:03)
[2020-10-17] MEDS: QUEtiapine FUMARATE 200 MG TAB PO SCH (09:17)
[2020-10-17] MEDS ORDERED: KCL 20MEQ IN D5W 1000ML 1,000 ML IV SCH (10:00)
--- NOTE | 2020-10-17 11:51 | IPNPDOC ---
Date Seen The patient was seen on 10/17/20. Progress Note SUBJECTIVE: Patient seen and examined at bedside. No acute events overnight. Patient is more alert this morning, asnwering questions appropriately. Voiding spontaneously. No need for straight cath overnight. Denies chest pain, n/v/d, fevers, chills. Denies etoh use. Denies SI at present. OBJECTIVE PHYSICAL EXAMINATION: VITAL SIGNS: please see below General: Somnolent, not in acute distress HEENT: PERRLA, EOMI, sclerae clear Neck: supple, normal ROM, no JVD Respiratory: lungs CTAB, no wheeze, no rales, no crackles CVS: RRR, normal S1, S2, no murmurs Abdo: From lower abdomen, no masses, no hepatosplenomegaly, BS+, no rebound tenderness Extremities: no edema, pulses 2+ MSK: no joint deformities, normal ROM Neuro: no focal neuro deficits, moving all 4 extremities, CN2-12 intact. Strength 5/5 in all 4 extremities. No nystagmus. Psych: calm, cooperative, AAO x 3 LABORATORY DATA, IMAGING STUDIES, MICROBIOLOGY: Please see below. Renal ultrasound (10/16/20) Fairly large volume of debris layering in the bladder base. No hydronephrosis. Otherwise, negative renal ultrasound. Liver ultrasound (10/16/20): IMPRESSION: Evidence of fatty infiltration of the liver. Otherwise negative right upper quadrant sonogram. DVT prophylaxis ordered?: Heparin, SCDs. ASSESSMENT AND PLAN:39 yo M with hx of depression and polysubstance abuse, admitted to hospitalist service for DEXTER and rhabdomyolysis likely secondary to drug overdose with MDMA. Patient was combative and aggressive with ER staff. . PLAN: Agitation/psychosis likely 2/2 drug overdose - 2/2 methamphetamine and MDMA use for past 8 days - hx of IVDU - required Ativan, Haldol 5 x 2 times in ER for significant agitation and agressive behaviour - neuro checks - 1:1 sitter - psychiatric eval once medically stable. - resume home meds: seroquel Rhabdomyolysis/pre-renal DEXTER - 2/2 dehydration, in context of prolonged MDMA use - Cr 1.58. GFR 52.8. BUN 33. - CK trending down - s/p NS bolus in ER - DC NS - start D5W with 20 meq KCL - continue to trend CPK Hypokalemia - Potassium 3.0 Replace with PO 80 meq. - started d5w with 20 meq kcl - repeat BMP ordered Urinary retention - likely 2/2 drug use, amphetamine, mdma - voiding spontaneously now - no hydronephrosis see on renal US Transaminitis/hyperbilirubinemia Transaminases downtrending. ALP elevation resolved. Hyperbilirubinemia, resolved. - possible related to shock liver 2/2 dehydration - ordered liver US - reviewed as above - hepatitis panel - negative Leukocytosis - resolved - likely reactive 2/2 drug OD, rhabdo and fluid depletion Depression/anxiety - resume wellbutrin, buspar Low TSH - TSH 0.235 - obtain FT4 - repeat TFTs outpatient as likely skewed by acute illness. DVT ppx: heparin 5000 q8h SC. Dispo: pending clinical improvement. VS, I&O, 24H, Fishbone Vital Signs/I&O Vital Signs Date Time Temp Pulse Resp B/P (MAP) Pulse Ox O2 Delivery O2 Flow Rate FiO2 10/17/20 07:24 98.5 75 18 129/62 (84) 93 Room Air I&O- Last 24 Hours up to 6 AM 10/17/20 06:00 Intake Total 7890 ml Output Total 4447 ml Balance 3443 ml Laboratory Data 24H LABS Laboratory Tests 2 10/16/20 21:10: Urine Color YELLOW, Urine Appearance CLOUDYH, Urine pH 6.0, Urine Specific [place] 1.015, Urine Protein NEGATIVE, Urine Glucose (UA) NEGATIVE, Urine Ketones 1+H, Urine Blood NEGATIVE, Urine Nitrite NEGATIVE, Urine Bilirubin NEGATIVE, Urine Urobilinogen 0.2, Urine Leukocyte Esterase NEGATIVE, Urine WBC (Auto) 2, Urine RBC (Auto) 1, Urine Hyaline Casts (Auto) 0, Urine Bacteria (Auto) NEGATIVE, Urine Squamous Epithelial Cells 0, Urine Calcium Carbonate Cryst(Auto) SMALL, Urine Sperm (Auto) 10/17/20 05:59: Immature Granulocyte % (Auto) 0.6, Neutrophils (%) (Auto) 41.7, Lymphocytes (%) (Auto) 34.3, Monocytes (%) (Auto) 10.6H, Eosinophils (%) (Auto) 11.9H, Basophils (%) (Auto) 0.9, Neutrophils # (Auto) 2.8, Lymphocytes # (Auto) 2.3, Monocytes # (Auto) 0.7, Eosinophils # (Auto) 0.8H, Basophils # (Auto) 0.1, Nucleated Red Blood Cells % (auto) 0.0, Anion Gap 7L, Glomerular Filtration Rate > 60.0, Calcium Level 7.6L, Magnesium Level 1.9, Total Bilirubin 0.2#, Aspartate Amino Transf (AST/SGOT) 85H, Alanine Aminotransferase (ALT/SGPT) 88H, Alkaline Phosphatase 89, Total Creatine Kinase 1639H, Total Protein 5.1L, Albumin 2.5L, Albumin/Globulin Ratio 1.0 CBC/BMP Laboratory Tests 10/17/20 05:59 MINDY NUÑEZ MD Oct 17, 2020 11:51
[2020-10-17 12:00] VITALS: BP 145/79
[2020-10-17 15:22] LABS: BLOOD UREA NITROGEN 6 MG/DL (7-18); CALCIUM LEVEL 7.9 MG/DL (8.5-10.1); CARBON DIOXIDE LEVEL 27 MEQ/L (21-32); CHLORIDE LEVEL 116 MEQ/L (98-107); CREATININE FOR GFR 0.69 MG/DL (0.70-1.30); GLOMERULAR FILTRATION RATE > 60.0 (>60); GLUCOSE, FASTING 159 MG/DL (70-100); POTASSIUM SERUM 3.6 MEQ/L (3.5-5.1); SODIUM LEVEL 148 MEQ/L (136-145)
[2020-10-17 16:00] VITALS: BP 149/79
[2020-10-17 20:00] VITALS: BP 142/69
[2020-10-17] MEDS: QUEtiapine FUMARATE 100 MG TAB PO SCH (22:02)
[2020-10-18] VITALS (7 sets, daily range): BP systolic 123–146; BP diastolic 59–88
[2020-10-18] MEDS: HEPARIN SOD (PORCINE) 5000UNITS/ML 1ML VIAL/SYRINGE SC SCH ×3 (05:08→21:21)
[2020-10-18 08:13] LABS: BASO # 0.1 10^3/uL (0.0-0.2); BASO % 0.9 % (0.0-1.0); EOS # 0.6 10^3/uL (0.0-0.5); EOS % 9.3 % (0.0-3.0); HEMOGLOBIN 12.6 g/dl (13.5-17.5); LYMPH # 2.7 10^3/uL (1.5-5.0); LYMPH % 39.6 % (24.0-44.0); MEAN CORPUSCULAR HEMOGLOBIN 28.6 pg (27.0-33.0); MEAN CORPUSCULAR HGB CONC 33.2 g/dl (32.0-36.5); MEAN CORPUSCULAR VOLUME 86.2 fl (80.0-96.0); MONO # 0.6 10^3/uL (0.0-0.8); MONO % 9.4 % (2.0-8.0); NEUTROPHILS # 2.7 10^3/uL (1.5-8.5); NEUTROPHILS % 40.1 % (36.0-66.0); PLATELET COUNT, AUTOMATED 256 10^3/uL (150-450); RED BLOOD COUNT 4.41 10^6/uL (4.30-6.10); WHITE BLOOD COUNT 6.8 10^3/uL (4.0-10.0)
[2020-10-18] MEDS: buPROPion **XL** TABLET 150MG (WELLBUTRIN XL) PO SCH (08:13)
[2020-10-18] MEDS: busPIRone 10 MG TAB PO SCH ×2 (08:13→21:21)
[2020-10-18] MEDS: QUEtiapine FUMARATE 200 MG TAB PO SCH (08:13)
[2020-10-18] MEDS: DOCUSATE SODIUM 100MG CAPSULE PO SCH ×2 (08:13→21:21)
[2020-10-18 08:35] LABS: ALBUMIN 2.5 GM/DL (3.2-5.2); ALT/SGPT 77 U/L (12-78); BILIRUBIN,TOTAL 0.2 MG/DL (0.2-1.0); BLOOD UREA NITROGEN 7 MG/DL (7-18); CALCIUM LEVEL 8.1 MG/DL (8.5-10.1); CARBON DIOXIDE LEVEL 31 MEQ/L (21-32); CHLORIDE LEVEL 113 MEQ/L (98-107); CREATININE FOR GFR 0.65 MG/DL (0.70-1.30); GLOMERULAR FILTRATION RATE > 60.0 (>60); GLUCOSE, FASTING 120 MG/DL (70-100); MAGNESIUM LEVEL 1.7 MG/DL (1.8-2.4); POTASSIUM SERUM 3.4 MEQ/L (3.5-5.1); SODIUM LEVEL 148 MEQ/L (136-145); TOTAL PROTEIN 5.3 GM/DL (6.4-8.2)
[2020-10-18 10:22] LABS: CPK CREATINE PHOSPHOKINASE 469 U/L (39-308)
[2020-10-18] MEDS ORDERED: POTASSIUM CHLORIDE 10 MEQ SR TABLET PO ONE (11:00)
[2020-10-18] MEDS: MAG SULF 1GM/100ML (MAG RUN) 1 GM in IV 1 EA IV SCH ×2 (12:33→13:52)
--- NOTE | 2020-10-18 14:42 | IPNPDOC ---
Date Seen The patient was seen on 10/18/20. Progress Note SUBJECTIVE: Patient seen and examined at bedside. No acute events overnight. Patient is more alert this morning, asnwering questions appropriately. Voiding spontaneously. No need for straight cath overnight. Denies chest pain, n/v/d, fevers, chills. Denies etoh use. Denies SI at present. OBJECTIVE PHYSICAL EXAMINATION: VITAL SIGNS: please see below General: Somnolent, not in acute distress HEENT: PERRLA, EOMI, sclerae clear Neck: supple, normal ROM, no JVD Respiratory: lungs CTAB, no wheeze, no rales, no crackles CVS: RRR, normal S1, S2, no murmurs Abdo: From lower abdomen, no masses, no hepatosplenomegaly, BS+, no rebound tenderness Extremities: no edema, pulses 2+ MSK: no joint deformities, normal ROM Neuro: no focal neuro deficits, moving all 4 extremities, CN2-12 intact. Strength 5/5 in all 4 extremities. No nystagmus. Psych: calm, cooperative, AAO x 3 LABORATORY DATA, IMAGING STUDIES, MICROBIOLOGY: Please see below. Renal ultrasound (10/16/20) Fairly large volume of debris layering in the bladder base. No hydronephrosis. Otherwise, negative renal ultrasound. Liver ultrasound (10/16/20): IMPRESSION: Evidence of fatty infiltration of the liver. Otherwise negative right upper quadrant sonogram. DVT prophylaxis ordered?: Heparin, SCDs. ASSESSMENT AND PLAN:39 yo M with hx of depression and polysubstance abuse, admitted to hospitalist service for DEXTER and rhabdomyolysis likely secondary to drug overdose with MDMA. Patient was combative and aggressive with ER staff. . PLAN: Agitation/psychosis likely 2/2 drug overdose - 2/2 methamphetamine and MDMA use for past 8 days - hx of IVDU - required Ativan, Haldol 5 x 2 times in ER for significant agitation and aggressive behaviour - neuro checks - 1:1 sitter - psychiatric eval once medically stable. - resume home meds: seroquel Rhabdomyolysis/pre-renal DEXTER - 2/2 dehydration, in context of prolonged MDMA use - Cr 1.58. GFR 52.8. BUN 33. - CK trending down - s/p NS bolus in ER - DC NS Hypernatremia - improving Hypokalemia - replace Urinary retention - likely 2/2 drug use, amphetamine, mdma - voiding spontaneously now - no hydronephrosis see on renal US Transaminitis/hyperbilirubinemia Transaminases downtrending. ALP elevation resolved. Hyperbilirubinemia, resolved. - possible related to shock liver 2/2 dehydration - ordered liver US - reviewed as above - hepatitis panel - negative Leukocytosis - resolved - likely reactive 2/2 drug OD, rhabdo and fluid depletion Depression/anxiety - resume wellbutrin, buspar Low TSH - TSH 0.235 - obtain FT4 - repeat TFTs outpatient as likely skewed by acute illness. DVT ppx: heparin 5000 q8h SC. Dispo: pending clinical improvement. VS, I&O, 24H, Fishbone Vital Signs/I&O Vital Signs Date Time Temp Pulse Resp B/P (MAP) Pulse Ox O2 Delivery O2 Flow Rate FiO2 10/18/20 12:00 97.2 73 18 146/77 (100) 93 Room Air I&O- Last 24 Hours up to 6 AM 10/18/20 06:00 Intake Total 4860 ml Output Total 2150 ml Balance 2710 ml Laboratory Data 24H LABS Laboratory Tests 2 10/17/20 14:47: Anion Gap 5L, Glomerular Filtration Rate > 60.0, Calcium Level 7.9L 10/18/20 07:54: Anion Gap 4L, Glomerular Filtration Rate > 60.0, Calcium Level 8.1L, Immature Granulocyte % (Auto) 0.7, Neutrophils (%) (Auto) 40.1, Lymphocytes (%) (Auto) 39.6, Monocytes (%) (Auto) 9.4H, Eosinophils (%) (Auto) 9.3H, Basophils (%) (Auto) 0.9, Neutrophils # (Auto) 2.7, Lymphocytes # (Auto) 2.7, Monocytes # (Auto) 0.6, Eosinophils # (Auto) 0.6H, Basophils # (Auto) 0.1, Nucleated Red Blood Cells % (auto) 0.0, Magnesium Level 1.7L, Total Bilirubin 0.2, Aspartate Amino Transf (AST/SGOT) 50H, Alanine Aminotransferase (ALT/SGPT) 77, Alkaline Phosphatase 88, Total Creatine Kinase 469H, Total Protein 5.3L, Albumin 2.5L, Albumin/Globulin Ratio 0.9 CBC/BMP Laboratory Tests 10/17/20 14:47 10/18/20 07:54 MINDY NUÑEZ MD Oct 18, 2020 14:42
[2020-10-18] MEDS ORDERED: GI COCKTAIL 50ML BTL(HYOSCYAMINE/MAALOX/LIDOCAINE VISCOUS)(1:3:1) PO ONE (16:00)
[2020-10-18] MEDS: QUEtiapine FUMARATE 100 MG TAB PO SCH (21:22)
[2020-10-19] MEDS: MAALOX 30 ML SUSP *UDC PO PRN ×2 (02:17→09:43)
[2020-10-19] MEDS: HEPARIN SOD (PORCINE) 5000UNITS/ML 1ML VIAL/SYRINGE SC SCH ×3 (05:29→21:13)
[2020-10-19] MEDS: CALCIUM CARBONATE 500 MG CHEW U/D PO PRN ×2 (05:53→17:55)
[2020-10-19 06:00] VITALS: BP 143/84
[2020-10-19 06:57] LABS: BASO # 0.1 10^3/uL (0.0-0.2); BASO % 1.2 % (0.0-1.0); EOS # 0.7 10^3/uL (0.0-0.5); EOS % 10.2 % (0.0-3.0); HEMATOCRIT 40.1 % (42.0-52.0); HEMOGLOBIN 13.2 g/dl (13.5-17.5); LYMPH # 2.9 10^3/uL (1.5-5.0); LYMPH % 43.1 % (24.0-44.0); MEAN CORPUSCULAR HEMOGLOBIN 28.4 pg (27.0-33.0); MEAN CORPUSCULAR HGB CONC 32.9 g/dl (32.0-36.5); MEAN CORPUSCULAR VOLUME 86.4 fl (80.0-96.0); MONO # 0.5 10^3/uL (0.0-0.8); MONO % 7.1 % (2.0-8.0); NEUTROPHILS # 2.5 10^3/uL (1.5-8.5); NEUTROPHILS % 37.2 % (36.0-66.0); PLATELET COUNT, AUTOMATED 282 10^3/uL (150-450); RED BLOOD COUNT 4.64 10^6/uL (4.30-6.10); WHITE BLOOD COUNT 6.8 10^3/uL (4.0-10.0)
[2020-10-19 07:14] LABS: ALBUMIN 2.5 GM/DL (3.2-5.2); ALT/SGPT 82 U/L (12-78); BILIRUBIN,TOTAL 0.1 MG/DL (0.2-1.0); BLOOD UREA NITROGEN 8 MG/DL (7-18); CALCIUM LEVEL 8.2 MG/DL (8.5-10.1); CARBON DIOXIDE LEVEL 29 MEQ/L (21-32); CHLORIDE LEVEL 108 MEQ/L (98-107); CREATININE FOR GFR 0.71 MG/DL (0.70-1.30); GLOMERULAR FILTRATION RATE > 60.0 (>60); GLUCOSE, FASTING 113 MG/DL (70-100); MAGNESIUM LEVEL 1.9 MG/DL (1.8-2.4); POTASSIUM SERUM 3.6 MEQ/L (3.5-5.1); SODIUM LEVEL 143 MEQ/L (136-145); TOTAL PROTEIN 5.4 GM/DL (6.4-8.2)
[2020-10-19 08:45] LABS: C REACTIVE PROTEIN QUANTITATIV 1.82 MG/DL (0.00-0.30); NT-PRO BNP 793 PG/ML (<125); TROPONIN I < 0.02 NG/ML (< 0.10)
[2020-10-19] MEDS: DOCUSATE SODIUM 100MG CAPSULE PO SCH ×2 (09:00→21:13)
[2020-10-19] MEDS: buPROPion **XL** TABLET 150MG (WELLBUTRIN XL) PO SCH (09:39)
[2020-10-19] MEDS: busPIRone 10 MG TAB PO SCH ×2 (09:39→21:13)
[2020-10-19] MEDS: QUEtiapine FUMARATE 200 MG TAB PO SCH (10:55)
--- NOTE | 2020-10-19 11:07 | IPNPDOC ---
Date Seen The patient was seen on 10/19/20. Progress Note SUBJECTIVE: Patient seen and examined at bedside. Has worsening edema of the lower and upper extremities. Electrolytes have normalized, and IVF were discontinued > 24 hours ago. Patient continues to have low grade temperatures rangings from 99.2 to 99.7. States that he has been using IV drugs for the past 15 years, and sometimes shares needles. Numerous injection sites. Does not skin pop with heroin. Only uses methamphetamine and MDMA at this time. OBJECTIVE PHYSICAL EXAMINATION: VITAL SIGNS: please see below General: Somnolent, not in acute distress HEENT: PERRLA, EOMI, sclerae clear Neck: supple, normal ROM, no JVD Respiratory: lungs CTAB, no wheeze, no rales, no crackles CVS: RRR, normal S1, S2, possibly fait Abdo: From lower abdomen, no masses, no hepatosplenomegaly, BS+, no rebound tenderness Extremities: 1+ pitting edema of the legs, no tenderness to palpation, no erythema. Bilateral arm swelling, R > L. MSK: no joint deformities, normal ROM Neuro: no focal neuro deficits, moving all 4 extremities, CN2-12 intact. Strength 5/5 in all 4 extremities. No nystagmus. Psych: calm, cooperative, AAO x 3 LABORATORY DATA, IMAGING STUDIES, MICROBIOLOGY: Please see below. Renal ultrasound (10/16/20) Fairly large volume of debris layering in the bladder base. No hydronephrosis. Otherwise, negative renal ultrasound. Liver ultrasound (10/16/20): IMPRESSION: Evidence of fatty infiltration of the liver. Otherwise negative right upper quadrant sonogram. DVT prophylaxis ordered?: Heparin, SCDs. ASSESSMENT AND PLAN:39 yo M with hx of depression and polysubstance abuse, admitted to hospitalist service for DEXTER and rhabdomyolysis likely secondary to drug overdose with MDMA. Patient was combative and aggressive with ER staff. . PLAN: Low grade fevers/hx of IVDU/leukocytosis: WBC count normalized. persistent low grade temps, T ma 99.7. 15 yr hx of IVDU. Hep C negative. HIV pending. Ordered blood cultures on 10/19/20. 2D echo ordered. R/o IE. Edema: s/p IVF for rhabdo. BNP 793. check 2D echo. hx of IVDU. R/o IE, valvular insufficiency. Agitation/psychosis likely 2/2 drug overdose - 2/2 methamphetamine and MDMA use for past 8 days - hx of IVDU - required Ativan, Haldol 5 x 2 times in ER for significant agitation and aggr essive behavior - behaviour has normalized. Patient is pleasant, cooperative and polite. He is not reporting any SI/HI/AH/Vh - I spoke to Dr. Newell this morning, he has recommended to discontinue the sitter - at this time, infectious workup is ongiong due to low grade fevers and hx of IVDU, need for psychiatric evaluation to be determined based on clinical progress. - resume home meds: seroquel Rhabdomyolysis/pre-renal DEXTER: resolved. Cr. 0.71. CK trended down. Hypernatremia: resolved Hypokalemia: resolved. Urinary retention: likely 2/2 heavy drug use. voiding spontaneously. Renal US showed no hydronephrosis. Transaminitis/hyperbilirubinemia: Transaminases downtrending. ALP elevation resolved. Hyperbilirubinemia, resolved. - possible related to shock liver 2/2 dehydration - ordered liver US - reviewed as above - hepatitis panel - negative GERD: start PPI. GI cocktail prn. Depression/anxiety - resume wellbutrin, buspar Low TSH - TSH 0.235 - obtain FT4 - repeat TFTs outpatient as likely skewed by acute illness. DVT ppx: heparin 5000 q8h SC. Dispo: pending clinical improvement. VS, I&O, 24H, Fishbone Vital Signs/I&O Vital Signs Date Time Temp Pulse Resp B/P (MAP) Pulse Ox O2 Delivery O2 Flow Rate FiO2 10/19/20 06:00 99.0 62 20 143/84 (103) 93 10/18/20 20:00 Room Air I&O- Last 24 Hours up to 6 AM 10/19/20 06:00 Intake Total 3440 ml Output Total 1550 ml Balance 1890 ml Laboratory Data 24H LABS Laboratory Tests 2 10/19/20 06:25: Immature Granulocyte % (Auto) 1.2, Neutrophils (%) (Auto) 37.2, Lymphocytes (%) (Auto) 43.1, Monocytes (%) (Auto) 7.1, Eosinophils (%) (Auto) 10.2H, Basophils (%) (Auto) 1.2H, Neutrophils # (Auto) 2.5, Lymphocytes # (Auto) 2.9, Monocytes # (Auto) 0.5, Eosinophils # (Auto) 0.7H, Basophils # (Auto) 0.1, Nucleated Red Blood Cells % (auto) 0.0, Anion Gap 6L, Glomerular Filtration Rate > 60.0, Calcium Level 8.2L, Magnesium Level 1.9, Total Bilirubin 0.1L, Aspartate Amino Transf (AST/SGOT) 52H, Alanine Aminotransferase (ALT/SGPT) 82H, Alkaline Phosphatase 100, Troponin I < 0.02, C-Reactive Protein, Quantitative 1.82H, BN-Brq-O-Type Natriuretic Peptide 793H, Total Protein 5.4L, Albumin 2.5L, Albumin/Globulin Ratio 0.9 CBC/BMP Laboratory Tests 10/19/20 06:25 Microbiology Microbiology 10/19/20 Blood Culture, Received Pending 10/19/20 Blood Culture, Received Pending MINDY NUÑEZ MD Oct 19, 2020 11:07
[2020-10-19] MEDS ORDERED: GI COCKTAIL 50ML BTL(HYOSCYAMINE/MAALOX/LIDOCAINE VISCOUS)(1:3:1) PO PRN (11:10)
[2020-10-19 11:30] LABS: ERYTHROCYTE SEDIMENTATION RATE 11 mm/hr (0-15)
[2020-10-19 12:51] LABS: HIV 1&2 SCREEN CENTAUR NEGATIVE (NEGATIVE)
--- NOTE | 2020-10-19 13:44 | REP ---
INDICATION: bilateral arm swelling, r/o DVT COMPARISON: None. TECHNIQUE: Real time compression and duplex Doppler evaluation of the Bilateral upper extremity deep venous system is performed. FINDINGS: The Bilateral subclavian, jugular, axillary, brachial, basilic and cephalic veins are fully compressible where accessible with transducer pressure, and demonstrate no intraluminal thrombus and normal venous waveforms. There is no evidence of deep venous thrombosis. IMPRESSION: No evidence of deep venous thrombosis of the Bilateral upper extremity deep vein system. <Electronically signed by Trey Franco > 10/19/20 [id number]
[2020-10-19 14:00] VITALS: BP 137/80
[2020-10-19] MEDS: PANTOPRAZOLE 40MG TAB (PROTONIX) PO SCH (14:15)
[2020-10-19] MEDS: QUEtiapine FUMARATE 100 MG TAB PO SCH (21:13)
[2020-10-19 22:00] VITALS: BP 125/80
[2020-10-20] MEDS: HEPARIN SOD (PORCINE) 5000UNITS/ML 1ML VIAL/SYRINGE SC SCH ×2 (05:03→13:24)
[2020-10-20 06:00] VITALS: BP 138/80
[2020-10-20 06:17] LABS: BASO # 0.1 10^3/uL (0.0-0.2); BASO % 0.8 % (0.0-1.0); EOS # 0.7 10^3/uL (0.0-0.5); EOS % 9.7 % (0.0-3.0); HEMATOCRIT 41.1 % (42.0-52.0); HEMOGLOBIN 13.5 g/dl (13.5-17.5); LYMPH # 2.8 10^3/uL (1.5-5.0); LYMPH % 37.2 % (24.0-44.0); MEAN CORPUSCULAR HEMOGLOBIN 28.3 pg (27.0-33.0); MEAN CORPUSCULAR HGB CONC 32.8 g/dl (32.0-36.5); MEAN CORPUSCULAR VOLUME 86.2 fl (80.0-96.0); MONO # 0.7 10^3/uL (0.0-0.8); MONO % 9.1 % (2.0-8.0); PLATELET COUNT, AUTOMATED 306 10^3/uL (150-450); RED BLOOD COUNT 4.77 10^6/uL (4.30-6.10); WHITE BLOOD COUNT 7.4 10^3/uL (4.0-10.0)
[2020-10-20 06:51] LABS: ALBUMIN 2.8 GM/DL (3.2-5.2); ALT/SGPT 133 U/L (12-78); BILIRUBIN,TOTAL 0.2 MG/DL (0.2-1.0); BLOOD UREA NITROGEN 9 MG/DL (7-18); CALCIUM LEVEL 8.3 MG/DL (8.5-10.1); CARBON DIOXIDE LEVEL 30 MEQ/L (21-32); CHLORIDE LEVEL 107 MEQ/L (98-107); CREATININE FOR GFR 0.86 MG/DL (0.70-1.30); GLOMERULAR FILTRATION RATE > 60.0 (>60); GLUCOSE, FASTING 137 MG/DL (70-100); POTASSIUM SERUM 3.8 MEQ/L (3.5-5.1); SODIUM LEVEL 143 MEQ/L (136-145); TOTAL PROTEIN 5.9 GM/DL (6.4-8.2)
[2020-10-20] MEDS: buPROPion **XL** TABLET 150MG (WELLBUTRIN XL) PO SCH (09:31)
[2020-10-20] MEDS: QUEtiapine FUMARATE 200 MG TAB PO SCH (09:31)
[2020-10-20] MEDS: PANTOPRAZOLE 40MG TAB (PROTONIX) PO SCH (09:31)
[2020-10-20] MEDS: busPIRone 10 MG TAB PO SCH (09:32)
[2020-10-20] MEDS: DOCUSATE SODIUM 100MG CAPSULE PO SCH (09:32)
--- NOTE | 2020-10-20 11:27 | ECHO ---
DATE OF PROCEDURE: 10/19/2020 Age: 39 Gender: Male Height: 173 cm Weight: 107 kg REFERRING PHYSICIAN: Carlos Tillman MD. INDICATION: Edema. MEASUREMENTS: IVS 0.8 cm LV 4.9 cm LVPW 0.8 cm LA 3.6 cm Aorta 2.7 cm RV 3.2 cm IVC 1.7 cm Mitral E wave velocity 113 A wave 41 E prime septal 13.2 E prime lateral 12.0 FINDINGS: This study is of acceptable technical quality. Patient is in sinus rhythm. Left ventricle is normal size and has normal systolic function, I estimated LVEF around 55 to 60%. Right ventricle is also normal size. Both atria appear grossly normal. Aortic, mitral, tricuspid, and pulmonic valves all appear normal. No pericardial effusion is noted. Inferior vena cava is of normal size and collapses with inspiration indicative of normal central venous pressure. Aortic root is normal. Aortic arch and abdominal aorta were not well seen. Doppler interrogation of aortic valve reveals no stenosis or insufficiency. There is trace mitral and trace tricuspid insufficiency. Calculated pulmonary artery pressure is in the 20s corresponding to normal pulmonary artery pressure values. Pulmonic valve exhibits trace insufficiency. Mitral inflow pattern and tissue Doppler imaging of mitral annulus revealed normal diastolic function. CONCLUSIONS: 1. Study is of acceptable technical quality, underlying sinus rhythm. 2. Normal LV size with likely normal LV systolic and diastolic function. 3. No significant valvular disease. 4. Normal central venous pressure and normal pulmonary artery pressure. [facility]
[2020-10-20 14:00] VITALS: BP 136/85
[2020-10-20] MEDS ORDERED: PANT40TA29 PO (14:39)
--- NOTE | 2020-10-20 16:02 | DS.PDOC ---
Discharge Summary General Date of Admission Oct 15, 2020 at 14:27 Date of Discharge 10/20/20 Discharge Summary PROCEDURES PERFORMED DURING STAY: [None]. ADMITTING/DISCHARGE DIAGNOSES: Drug overdose Psychosis Rhabdomyolysis Hyponatremia Hypokalemia Transaminitis COMPLICATIONS/CHIEF COMPLAINT: Drug Use/Rhabdomyolysis. HISTORY OF PRESENT ILLNESS: From admitting attendings H&P: 39 yo M with a hx of polysubstance abuse and depression, brought to ER for aggressive behaviour and reporting to staff that he has been using methamphetamines and MDMA for the past 8 days. He was combative and demonstrating aggressive behaviour, received ativan and a total of 10 mg of haldol. His vitals on arrival were T 98.2. HR 117. BP 183/123. Pulse ox 94% on RA. Labs significant for WBC 18.4. Hgb 15.5. Na 144. K 3.8. BUN 33. Cr 1.58. T bili 1.6. D bili 0.6. AST 460. [place] [address]. UDS positive for amphetaimine. Patient was given 2L NS bolus. Will be admitted to hospitalist service for management of DEXTER and rhabdomyolysis. HOSPITAL COURSE: Agitation/psychosis likely 2/2 drug overdose 2/2 methamphetamine and MDMA use for past 8 days hx of IVDU required Ativan, Haldol 5 x 2 times in ER for significant agitation and aggressive behavior behaviour has normalized. Patient is pleasant, cooperative and polite. He is not reporting any SI/HI/AH/Vh. Resume [facility] Psychiatrist Dr Newell saw patient on day of discharge and cleared him for DC to home. Echo reviewed there is no suspicion of infective endocarditis at this time patient has had no febrile episodes. Blood cultures are preliminarily negative. Rhabdomyolysis/pre-renal DEXTER: resolved. Cr. 0.71. CK trended down. Hypernatremia: resolved Hypokalemia: resolved. Urinary retention: likely 2/2 heavy drug use. voiding spontaneously. Renal US showed no hydronephrosis. Transaminitis/hyperbilirubinemia: Transaminases downtrending. ALP elevation resolved. Hyperbilirubinemia, resolved. Possible related to shock liver 2/2 dehydration ordered liver US - reviewed as above hepatitis panel - negative GERD: start PPI Depression/anxiety resume wellbutrin, buspar Low TSH. TSH 0.235 repeat TFTs outpatient as likely skewed by acute illness. DISCHARGE MEDICATIONS: Please see below. ALLERGIES: Please see below. PHYSICAL EXAMINATION ON DISCHARGE: VITAL SIGNS: Please see below. General: Awake and alert in no distress answering my questions appropriately HEENT: PERRLA, EOMI, sclerae clear Neck: supple, normal ROM, no JVD Respiratory: lungs CTAB, no wheeze, no rales, no crackles CVS: RRR, normal S1, S2 Abdo: Nontender, good bowel sounds Extremities: Trace pedal edema MSK: no joint deformities, normal ROM Neuro: no focal neuro deficits Psych: calm, cooperative, AAO x 3 LABORATORY DATA: Please see below. IMAGING: Renal ultrasound (10/16/20) Fairly large volume of debris layering in the bladder base. No hydronephrosis. Otherwise, negative renal ultrasound. Liver ultrasound (10/16/20): IMPRESSION: Evidence of fatty infiltration of the liver. Otherwise negative right upper quadrant sonogram. Echo 10/19/20 1. Study is of acceptable technical quality, underlying sinus rhythm. 2. Normal LV size with likely normal LV systolic and diastolic function. 3. No significant valvular disease. 4. Normal central venous pressure and normal pulmonary artery pressure. PROGNOSIS: fair ACTIVITY: [As tolerated]. DIET: Regular DISPOSITION: Home DISCHARGE INSTRUCTIONS: Please follow up with your primary care physician within 1 week from discharge. If you do not have one, please follow up with us to schedule an appointment. Please keep all of your follow up appointments. Please call central to book your appointments with hospital specialists. Please take all your medications as prescribed. Please call/come to Clinic or go to the Emergency Department if - Temp >101, intractable Nausea/Vomiting, Diarrhea, Mouth sores, Headaches, Altered mental status, Seizures, sudden onset of swelling, bleeding, shortness of breath or chest pain. ITEMS TO FOLLOWUP ON ON OUTPATIENT: Follow-up with PCP within 5 days of discharge Follow-up with psychiatrist DISCHARGE CONDITION: [Stable]. TIME SPENT ON DISCHARGE: 40 minutes. Vital Signs/I&Os Vital Signs Date Time Temp Pulse Resp B/P (MAP) Pulse Ox O2 Delivery O2 Flow Rate FiO2 10/20/20 06:00 98.2 62 18 138/80 (99) 96 Room Air I&O- Last 24 Hours up to 6 AM 10/20/20 06:00 Intake Total 2100 ml Balance 2100 ml Laboratory Data Labs 24H Laboratory Tests 2 10/20/20 05:31: Immature Granulocyte % (Auto) 2.2, Neutrophils (%) (Auto) 41.0, Lymphocytes (%) (Auto) 37.2, Monocytes (%) (Auto) 9.1H, Eosinophils (%) (Auto) 9.7H, Basophils (%) (Auto) 0.8, Neutrophils # (Auto) 3.0, Lymphocytes # (Auto) 2.8, Monocytes # (Auto) 0.7, Eosinophils # (Auto) 0.7H, Basophils # (Auto) 0.1, Nucleated Red Blood Cells % (auto) 0.0, Anion Gap 6L, Glomerular Filtration Rate > 60.0, Calcium Level 8.3L, Magnesium Level 2.0, Total Bilirubin 0.2#, Aspartate Amino Transf (AST/SGOT) 85H, Alanine Aminotransferase (ALT/SGPT) 133H, Alkaline Phosphatase 118H, Total Protein 5.9L, Albumin 2.8L, Albumin/Globulin Ratio 0.9 CBC/BMP Laboratory Tests 10/20/20 05:31 Microbiology Microbiology 10/19/20 Blood Culture - Preliminary, Resulted No growth after 24 hours . All specim... 10/19/20 Blood Culture - Preliminary, Resulted No growth after 24 hours . All specim... Discharge Medications Scheduled Bupropion Hcl (Bupropion Xl) 150 Mg Tab.er.24h, 150 MG PO DAILY, (Reported) Buspirone HCl (Buspirone HCl) 30 Mg Tablet, 30 MG PO BID, (Reported) Naltrexone HCl (Naltrexone HCl) 50 Mg Tablet, 50 MG PO QHS, (Reported) Pantoprazole Sodium (Pantoprazole Sodium) 40 Mg Tablet.dr, 40 MG PO DAILY Quetiapine Fumarate (Quetiapine Fumarate) 200 Mg Tablet, 200 MG PO DAILY, (Reported) Quetiapine Fumarate (Quetiapine Fumarate) 300 Mg Tablet, 300 MG PO QHS, (Reported) Allergies Coded Allergies: No Known Allergies (Unverified , 02/05/19) DEEPAK CRAMER MD Oct 20, 2020 14:38
== END 2020-10-20 16:25 | disposition home or self-care (01) | DRG 812 ==
LOC: M ED 09:48 → M ED INP 14:27 → ENRESERV 15:33 → M PCU 16:16 → M MSPAV 10-18 22:24
PROVIDERS: ADMIT Family Medicine; ATTEND Family Medicine
DX: T43.621A Poisoning by amphetamines, accidental (unintentional), initial encounter (principal); N17.9 Acute kidney failure, unspecified; E87.0 Hyperosmolality and hypernatremia; M62.82 Rhabdomyolysis; K76.0 Fatty (change of) liver, not elsewhere classified; F32.9 Major depressive disorder, single episode, unspecified; F15.10 Other stimulant abuse, uncomplicated; E80.6 Other disorders of bilirubin metabolism; E87.6 Hypokalemia; R33.9 Retention of urine, unspecified; E86.0 Dehydration; F41.9 Anxiety disorder, unspecified; Z79.899 Other long term (current) drug therapy; Z59.0 Homelessness

== ENCOUNTER 2020-10-23 05:21 | Inpatient (IN) | payer MEDICAID ==
[~2020-10-23] VITALS: Ht 172.7 cm; Wt 111.8 kg
[~2020-10-23 05:21] MED LIST changes: +BUPR150T12 PO; +BUSP30TA PO; +CLON-412 PO; +MED REC COMMENT; +PANT40TA29 PO; +QUET200T2 PO; +QUET300T2 PO
[2020-10-23 06:17] LABS: HEMATOCRIT 53.3 % (42.0-52.0); HEMOGLOBIN 17.6 g/dl (13.5-17.5); MEAN CORPUSCULAR HEMOGLOBIN 28.6 pg (27.0-33.0); MEAN CORPUSCULAR VOLUME 86.7 fl (80.0-96.0); PLATELET COUNT, AUTOMATED 403 10^3/uL (150-450); RED BLOOD COUNT 6.15 10^6/uL (4.30-6.10); WHITE BLOOD COUNT 13.9 10^3/uL (4.0-10.0)
[2020-10-23 06:57] LABS: ACETAMINOPHEN LEVEL < 2.0 UG/ML (10.0-30.0); ALBUMIN 4.1 GM/DL (3.2-5.2); ALT/SGPT 219 U/L (12-78); BILIRUBIN,DIRECT 0.1 MG/DL (0.0-0.2); BILIRUBIN,TOTAL 0.4 MG/DL (0.2-1.0); BLOOD UREA NITROGEN 13 MG/DL (7-18); CALCIUM LEVEL 9.6 MG/DL (8.5-10.1); CARBON DIOXIDE LEVEL 31 MEQ/L (21-32); CHLORIDE LEVEL 102 MEQ/L (98-107); CREATININE FOR GFR 1.21 MG/DL (0.70-1.30); ETHYL ALCOHOL (ETHANOL) < 0.003 % (0.000-0.010); GLOMERULAR FILTRATION RATE > 60.0 (>60); GLUCOSE, FASTING 95 MG/DL (70-100); POTASSIUM SERUM 5.4 MEQ/L (3.5-5.1); SALICYLATE LEVEL < 1.7 MG/DL (5.0-30.0); SODIUM LEVEL 139 MEQ/L (136-145); TOTAL PROTEIN 8.3 GM/DL (6.4-8.2)
[2020-10-23] MEDS ORDERED: QUEtiapine FUMARATE 200 MG TAB PO ONE (09:00)
[2020-10-23] MEDS ORDERED: busPIRone 10 MG TAB PO ONE (09:00)
[2020-10-23] MEDS ORDERED: PANTOPRAZOLE 40MG TAB (PROTONIX) PO ONE (09:00)
[2020-10-23 10:27] LABS: AMPHETAMINES LEVEL URINE NEGATIVE (NEGATIVE); BARBITURATES URINE NEGATIVE (NEGATIVE); BENZODIAZEPINES URINE NEGATIVE (NEGATIVE); CANNABINOIDS URINE NEGATIVE (NEGATIVE); COCAINE METABOLITE URINE NEGATIVE (NEGATIVE); METHADONE URINE NEGATIVE (NEGATIVE); OPIATES URINE NEGATIVE (NEGATIVE); PHENCYCLIDINE URINE NEGATIVE (NEGATIVE)
[2020-10-23 11:13] LABS: CPK CREATINE PHOSPHOKINASE 199 U/L (39-308)
[2020-10-23] MEDS ORDERED: GABA800T4 PO (17:08)
[2020-10-23] MEDS ORDERED: FLUO20CA22 PO (17:08)
[2020-10-23] MEDS ORDERED: IBUP200T45 PO (17:08)
[2020-10-23] MEDS ORDERED: ACETAMINOPHEN TAB 650MG DOSE (2X325MG) PO PRN (17:50)
[2020-10-23] MEDS ORDERED: MAALOX 30 ML SUSP *UDC PO PRN (17:50)
[2020-10-23 19:32] LABS: RSV AMPLIFICATION NEGATIVE (NEGATIVE)
[2020-10-23 21:57] VITALS: BP 132/89
[2020-10-23] MEDS: QUEtiapine FUMARATE 100 MG TAB PO SCH (22:58)
[2020-10-24 06:47] VITALS: BP 113/82
[2020-10-24] MEDS: QUEtiapine FUMARATE 200 MG TAB PO SCH (08:50)
[2020-10-24] MEDS: buPROPion **XL** TABLET 150MG (WELLBUTRIN XL) PO SCH (08:50)
[2020-10-24] MEDS: busPIRone 10 MG TAB PO SCH ×2 (08:50→20:01)
[2020-10-24] MEDS ORDERED: hydrOXYzine 50 MG TAB PO PRN (12:50)
[2020-10-24] MEDS: NICOTINE 21MG/24HR 1 EA TRANSDERMAL TD SCH (13:30)
[2020-10-24] MEDS: cloNIDine 0.1MG TABLET PO SCH ×2 (16:38→20:02)
[2020-10-24] MEDS: GABAPENTIN 400MG CAP PO SCH ×2 (16:38→20:01)
[2020-10-24 17:40] VITALS: BP 132/82
[2020-10-24 18:48] LABS: HEMATOCRIT 44.6 % (42.0-52.0); MEAN CORPUSCULAR HEMOGLOBIN 28.8 pg (27.0-33.0); MEAN CORPUSCULAR HGB CONC 33.4 g/dl (32.0-36.5); MEAN CORPUSCULAR VOLUME 86.1 fl (80.0-96.0); PLATELET COUNT, AUTOMATED 318 10^3/uL (150-450); RED BLOOD COUNT 5.18 10^6/uL (4.30-6.10); WHITE BLOOD COUNT 9.2 10^3/uL (4.0-10.0)
[2020-10-24 18:58] LABS: HEMOGLOBIN 14.9 g/dl (13.5-17.5)
[2020-10-24 19:14] LABS: ALBUMIN 3.3 GM/DL (3.2-5.2); ALT/SGPT 123 U/L (12-78); BILIRUBIN,DIRECT < 0.1 MG/DL (0.0-0.2); BILIRUBIN,TOTAL 0.1 MG/DL (0.2-1.0); BLOOD UREA NITROGEN 12 MG/DL (7-18); CALCIUM LEVEL 8.4 MG/DL (8.5-10.1); CARBON DIOXIDE LEVEL 26 MEQ/L (21-32); CHLORIDE LEVEL 104 MEQ/L (98-107); CREATININE FOR GFR 0.98 MG/DL (0.70-1.30); GLOMERULAR FILTRATION RATE > 60.0 (>60); GLUCOSE, FASTING 148 MG/DL (70-100); POTASSIUM SERUM 4.6 MEQ/L (3.5-5.1); SODIUM LEVEL 138 MEQ/L (136-145); TOTAL PROTEIN 6.7 GM/DL (6.4-8.2)
[2020-10-24] MEDS: TOPIRAMATE (TopAMAX) 100 MG TAB PO SCH (20:01)
[2020-10-24] MEDS: QUEtiapine FUMARATE 100 MG TAB PO SCH (20:01)
[2020-10-24] MEDS: traMADol 50 MG TAB PO PRN (20:02)
--- NOTE | 2020-10-24 21:08 | HPEPDOC ---
[facility] Medical History & Physical Date of Admission Oct 23, 2020 Date of Service: Oct 24, 2020 History and Physical CHIEF COMPLAINT: Suicidal ideation HISTORY OF PRESENT ILLNESS: Mr. Chase is a 39 year old male with chronic back pain and polysubstance use who is in the [facility] for suicidal ideation. He tells me that he recently used Emy 2 days ago. Yesterday, he had poor appetite and had 10 episodes of diarrhea. Today, his appetite has returned and diarrhea has resolved. He was dehydrated on admission and demonstrated hemoconcentration with elevated hemoglobin and DEXTER. Now that his diarrhea resolved and appetite improved, his hemoglobin returned to normal and DEXTER resolved. Otherwise, he was complaining of chronic back pain since his back surgery for fractured T9. It is a sharp pain that radiates towards his neck and arms. He says he was on Dilaudid 6 months ago, but not on any analgesics now. Denies any weakness in arms or legs. Denies urinary or fecal incontinence. PAST MEDICAL HISTORY: 1. Polysubstance abuse 2. IV drug use 3. Depression PAST SURGICAL HISTORY: 1. Lithotripsy 2. T9 fracture s/p patsy placement SOCIAL HISTORY: Tobacco use: Current smoker ETOH: Denies Illicit drug use: Emy FAMILY HISTORY: Father: Patient does not know father's past medical history Mother: Mental illness. Patient does not know any further medical history mother ALLERGIES: Please see below. REVIEW OF SYSTEMS: CONSTITUTIONAL: Denies any fever or chills. ENT: Denies sore throat. RESPIRATORY: Denies shortness of breath. Denies cough. CARDIOVASCULAR: Denies chest pain. GASTROINTESTINAL: Denies abdominal pain. Reported diarrhea yesterday which resolved today GENITOURINARY: Denies dysuria. CUTANEOUS: Denies rashes. MUSCULOSKELETAL: Reports chronic back pain after back surgery NEUROLOGICAL: Reports periodic paresthesias in arms PSYCHOLOGICAL: Reports anxiety. Reports depression. HOME MEDICATIONS: Please see below. PHYSICAL EXAMINATION: VITAL SIGNS: Temperature 97.7, pulse 90, respiratory rate 16, blood pressure 132/82, pulse oximetry 96% on room air. GENERAL: Comfortable, in no apparent distress. HEENT: Head normocephalic/atraumatic, EOMI, sclera clear. NECK: Supple, no JVD. RESPIRATORY: Lungs clear to auscultation bilaterally, no rales, wheeze or rhonchi. CARDIOVASCULAR: Regular rate and rhythm. ABDOMEN: Soft, nontender, no guarding or rebound tenderness. Normal bowel sounds. MUSCLE SKELETAL: Muscle strength 5/5 in all extremities. NEUROLOGICAL: CN 312 grossly intact, no focal deficits noted. PSYCHOLOGICAL: Normal mood and affect LABORATORY DATA: See below. ASSESSMENT AND PLAN: 1. Suicidal ideation -Being managed in the inpatient mental health unit 2. Dehydration -Yesterday had 10 episodes of diarrhea, but now resolved. May be related to his recreational drug use -Repeated labs. Leukocytosis and erythrocytosis resolved. Hyperkalemia and DEXTER also resolved 3. Chronic back pain -Patient does not follow with PCP -Patient should follow for PCP to help management of back pain -Acetaminophen and tramadol as needed. Will do a trial of lidocaine patch Thank you for consulting us. We will sign off at this time. If there are any further questions or concerns, please do not hesitate to reconsult us. Vital Signs Vital Signs Date Time Temp Pulse Resp B/P (MAP) Pulse Ox O2 Delivery O2 Flow Rate FiO2 10/24/20 17:40 97.7 90 16 132/82 (99) 10/24/20 06:47 96 Room Air Laboratory Data Labs 24H Laboratory Tests 2 10/24/20 18:25: CBC/BMP Home Medications Scheduled Buspirone HCl (Buspirone HCl) 30 Mg Tablet, 30 MG PO BID Fluoxetine Hcl (Fluoxetine HCl) 20 Mg Capsule, 20 MG PO DAILY Gabapentin (Gabapentin) 800 Mg Tablet, 800 MG PO TID Quetiapine Fumarate (Quetiapine Fumarate) 200 Mg Tablet, 200 MG PO DAILY Quetiapine Fumarate (Quetiapine Fumarate) 300 Mg Tablet, 300 MG PO QHS Scheduled PRN Ibuprofen (Ibu-200) 200 Mg Tablet, 800 MG PO TID PRN for PAIN Allergies Coded Allergies: No Known Allergies (Unverified , 02/05/19) A-FIB/CHADSVASC A-FIB History Current/History of A-Fib/PAF?: No LASHAUN PAUL DO Oct 24, 2020 18:48
[2020-10-25 06:43] VITALS: BP 119/60
[2020-10-25] MEDS: buPROPion **XL** TABLET 150MG (WELLBUTRIN XL) PO SCH (08:27)
[2020-10-25] MEDS: QUEtiapine FUMARATE 200 MG TAB PO SCH (08:27)
[2020-10-25] MEDS: FLUoxetine 20 MG CAP PO SCH (08:27)
[2020-10-25] MEDS: cloNIDine 0.1MG TABLET PO SCH ×3 (08:28→20:01)
[2020-10-25] MEDS: GABAPENTIN 400MG CAP PO SCH ×3 (08:28→20:00)
[2020-10-25] MEDS: busPIRone 10 MG TAB PO SCH ×2 (08:28→20:01)
[2020-10-25] MEDS: TOPIRAMATE (TopAMAX) 100 MG TAB PO SCH ×2 (08:28→20:01)
[2020-10-25] MEDS: traMADol 50 MG TAB PO PRN ×2 (08:28→15:59)
[2020-10-25] MEDS: LIDOCAINE 5% (LIDODERM) PATCH TD SCH (08:29)
[2020-10-25] MEDS: NICOTINE 21MG/24HR 1 EA TRANSDERMAL TD SCH (08:29)
[2020-10-25 17:23] VITALS: BP 141/71
[2020-10-25] MEDS: QUEtiapine FUMARATE 100 MG TAB PO SCH (20:01)
[2020-10-25] MEDS: **NOTE PATIENT COMMENT** MISC XX SCH (20:49)
[2020-10-26 06:39] VITALS: BP 120/64
[2020-10-26] MEDS: traMADol 50 MG TAB PO PRN ×2 (06:43→16:35)
[2020-10-26] MEDS: LIDOCAINE 5% (LIDODERM) PATCH TD SCH (08:11)
[2020-10-26] MEDS: NICOTINE 21MG/24HR 1 EA TRANSDERMAL TD SCH (08:14)
[2020-10-26] MEDS: busPIRone 10 MG TAB PO SCH ×2 (08:14→20:03)
[2020-10-26] MEDS: GABAPENTIN 400MG CAP PO SCH ×3 (08:16→20:03)
[2020-10-26] MEDS: FLUoxetine 20 MG CAP PO SCH (08:16)
[2020-10-26] MEDS: QUEtiapine FUMARATE 200 MG TAB PO SCH (08:16)
[2020-10-26] MEDS: TOPIRAMATE (TopAMAX) 100 MG TAB PO SCH ×2 (08:16→20:03)
[2020-10-26] MEDS: buPROPion **XL** TABLET 150MG (WELLBUTRIN XL) PO SCH (08:16)
[2020-10-26] MEDS: cloNIDine 0.1MG TABLET PO SCH ×3 (08:16→20:03)
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
[2020-10-26 16:33] VITALS: BP 128/82
[2020-10-26] MEDS: QUEtiapine FUMARATE 100 MG TAB PO SCH (20:03)
[2020-10-26] MEDS: **NOTE PATIENT COMMENT** MISC XX SCH (20:46)
[2020-10-26] MEDS: traZODone 50 MG TAB PO PRN (21:55)
[2020-10-27] MEDS: traMADol 50 MG TAB PO PRN ×3 (05:06→21:53)
[2020-10-27] MEDS: MOM 30ML SUSPENSION UDC PO PRN (05:17)
[2020-10-27 06:23] VITALS: BP 156/80
[2020-10-27] MEDS: TOPIRAMATE (TopAMAX) 100 MG TAB PO SCH ×2 (08:11→20:18)
[2020-10-27] MEDS: FLUoxetine 20 MG CAP PO SCH (08:11)
[2020-10-27] MEDS: cloNIDine 0.1MG TABLET PO SCH ×3 (08:11→20:18)
[2020-10-27] MEDS: GABAPENTIN 400MG CAP PO SCH ×3 (08:12→20:18)
[2020-10-27] MEDS: QUEtiapine FUMARATE 200 MG TAB PO SCH (08:12)
[2020-10-27] MEDS: buPROPion **XL** TABLET 150MG (WELLBUTRIN XL) PO SCH (08:12)
[2020-10-27] MEDS: NICOTINE 21MG/24HR 1 EA TRANSDERMAL TD SCH (08:12)
[2020-10-27] MEDS: busPIRone 10 MG TAB PO SCH ×2 (08:14→20:19)
[2020-10-27] MEDS: LIDOCAINE 5% (LIDODERM) PATCH TD SCH (08:14)
--- NOTE | 2020-10-27 09:50 | MHIPN ---
PROGRESS NOTE DATE: 10/26/2020 SUBJECTIVE: I am tired and depressed. OBJECTIVE: He is a 39-year-old male who came by himself to the ER reporting that he has suicidal thoughts, wanted to kill himself with overdosing with insulin. Currently patient is isolative, depressed, vaguely complaining of suicidal thoughts; no plans. MENTAL STATUS EXAMINATION: Appearance: Well groomed, cooperative. Eye contact: Somewhat fleeting. Speech: Spontaneous. Affect: Constricted. Mood: Depressed. Thought process: Linear, goal directed. Thought content: Denied any paranoid delusions. Denied auditory or visual hallucinations. He is alert and oriented to time, place and person. Memory is intact. Insight and judgment are limited. Denied any homicidal thoughts. DIAGNOSIS: Depressive disorder not otherwise specified. Vital signs: Temperature 97.6, pulse 98, respiratory rate 16, pulse oximetry 99%. Labs: CBC within normal limits. ALT and AST were slightly high. Toxicology was negative. PLAN: Continue his current medications. ESTIMATED LENGTH OF STAY: 3 to 4 days. TIME SPENT ON EVALUATION: 25 minutes. TEDDY
[2020-10-27] MEDS ORDERED: MAGNESIUM CITRATE 300 ML BTL PO ONE (14:00)
[2020-10-27 16:32] VITALS: BP 133/76
--- NOTE | 2020-10-27 16:51 | MHIPN ---
[facility] PROGRESS NOTE DATE: 10/25/2020 The patient today states that he continues to hear voices telling him to kill himself but he is able to contract for safety at this point. He says he continues to be very depressed and he feels hopeless and helpless, and he says he slept good last night. MENTAL STATUS EXAMINATION: This patient is alert and oriented times three, pleasant and cooperative, verbally spontaneous. He says his mood is depressed. Affect full range and appropriate. He says he has auditory hallucinations telling him to kill himself and that he has suicidal ideation. Concentration is fair. Memory intact. Insight and judgment poor. DIAGNOSES: Unspecified depressive disorder. Unspecified psychotic disorder. Stimulant use disorder. Cannabis use disorder. TREATMENT PLAN: At this point, the patient continues to be psychotic and depressed and we will continue to monitor the patient for resolution of both psychotic symptoms and elevation and stabilization of his mood and resolution of suicidal ideations.
[2020-10-27] MEDS: QUEtiapine FUMARATE 100 MG TAB PO SCH (20:19)
[2020-10-27] MEDS: **NOTE PATIENT COMMENT** MISC XX SCH (20:48)
[2020-10-27] MEDS: traZODone 50 MG TAB PO PRN (21:53)
[2020-10-28] MEDS: traMADol 50 MG TAB PO PRN ×3 (04:50→20:25)
[2020-10-28 06:30] VITALS: BP 159/77
[2020-10-28] MEDS: LIDOCAINE 5% (LIDODERM) PATCH TD SCH (08:17)
[2020-10-28] MEDS: NICOTINE 21MG/24HR 1 EA TRANSDERMAL TD SCH (08:21)
[2020-10-28] MEDS: cloNIDine 0.1MG TABLET PO SCH ×3 (08:21→20:27)
[2020-10-28] MEDS: GABAPENTIN 400MG CAP PO SCH ×3 (08:21→20:24)
[2020-10-28] MEDS: buPROPion **XL** TABLET 150MG (WELLBUTRIN XL) PO SCH (08:21)
[2020-10-28] MEDS: QUEtiapine FUMARATE 200 MG TAB PO SCH (08:22)
[2020-10-28] MEDS: TOPIRAMATE (TopAMAX) 100 MG TAB PO SCH ×2 (08:22→20:27)
[2020-10-28] MEDS: busPIRone 10 MG TAB PO SCH ×2 (08:22→20:26)
[2020-10-28] MEDS: FLUoxetine 20 MG CAP PO SCH (08:22)
[2020-10-28 16:22] VITALS: BP 119/70
[2020-10-28] MEDS: MOM 30ML SUSPENSION UDC PO PRN (16:45)
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
[2020-10-28] MEDS: SENNA 8.6 MG TAB (SENOKOT) PO PRN (20:26)
[2020-10-28] MEDS: QUEtiapine FUMARATE 100 MG TAB PO SCH (20:26)
[2020-10-28] MEDS: **NOTE PATIENT COMMENT** MISC XX SCH (21:31)
[2020-10-29 07:12] VITALS: BP 127/83
[2020-10-29] MEDS: NICOTINE 21MG/24HR 1 EA TRANSDERMAL TD SCH (08:23)
[2020-10-29] MEDS: QUEtiapine FUMARATE 200 MG TAB PO SCH (08:24)
[2020-10-29] MEDS: GABAPENTIN 400MG CAP PO SCH ×3 (08:24→20:10)
[2020-10-29] MEDS: buPROPion **XL** TABLET 150MG (WELLBUTRIN XL) PO SCH (08:24)
[2020-10-29] MEDS: FLUoxetine 20 MG CAP PO SCH (08:24)
[2020-10-29] MEDS: LIDOCAINE 5% (LIDODERM) PATCH TD SCH (08:25)
[2020-10-29] MEDS: busPIRone 10 MG TAB PO SCH ×2 (08:25→20:11)
[2020-10-29] MEDS: TOPIRAMATE (TopAMAX) 100 MG TAB PO SCH ×2 (08:25→20:10)
[2020-10-29] MEDS: cloNIDine 0.1MG TABLET PO SCH ×3 (08:25→20:10)
[2020-10-29] MEDS: traMADol 50 MG TAB PO PRN ×2 (08:26→20:11)
[2020-10-29 16:11] VITALS: BP 128/75
[2020-10-29] MEDS: MOM 30ML SUSPENSION UDC PO PRN (16:54)
--- NOTE | 2020-10-29 17:30 | IPNPDOC ---
Text Note Date of Service The patient was seen on 10/29/20. NOTE Subjective: Patient complains of bilateral leg swelling, he stated that he has been having for past few weeks. Also he complains of constipation Objective: GENERAL APPEARANCE: Obese male HEENT: no scleral icterus, no JVD, EOMI CARDIOVASCULAR: S1S2 LUNGS: CTA ABDOMEN: soft & not tender w palpitation MUSCULOSKELETAL: no cyanosis, +1 nonpitting edema of lower extremity bilaterally INTEGUMENT: no generalized pallor NEUROLOGICAL: cranial nerve function from 2-12 intact intact, follows commands, speech not dysarthric Assessment and plan Mr. Chase is a 39 year old male with chronic back pain and polysubstance use who is in the [facility] for suicidal ideation Leg swelling Unknown etiology. Differential diagnosis includes medication side effect, lymphostasis, CHF, chronic kidney diseases Will check CBC, BMP, BNP Echo was done on 10/21/20 and it was normal TSH within normal limit Constipation Colace daily Suicidal ideation defer treatment to psych team VS,Mil, I+O VS, Beatricee, I+O Vital Signs Date Time Temp Pulse Resp B/P (MAP) Pulse Ox O2 Delivery O2 Flow Rate FiO2 10/29/20 16:11 97.6 70 18 128/75 (92) 96 Room Air ZOE MENON DO Oct 29, 2020 17:30
[2020-10-29] MEDS: SENNA 8.6 MG TAB (SENOKOT) PO PRN (18:23)
[2020-10-29 18:35] LABS: BASO # 0.1 10^3/uL (0.0-0.2); BASO % 1.1 % (0.0-1.0); EOS # 0.7 10^3/uL (0.0-0.5); EOS % 7.4 % (0.0-3.0); HEMATOCRIT 39.8 % (42.0-52.0); HEMOGLOBIN 13.4 g/dl (13.5-17.5); LYMPH # 2.8 10^3/uL (1.5-5.0); MEAN CORPUSCULAR HEMOGLOBIN 29.1 pg (27.0-33.0); MEAN CORPUSCULAR HGB CONC 33.7 g/dl (32.0-36.5); MEAN CORPUSCULAR VOLUME 86.3 fl (80.0-96.0); MONO # 0.9 10^3/uL (0.0-0.8); NEUTROPHILS # 4.2 10^3/uL (1.5-8.5); NEUTROPHILS % 47.9 % (36.0-66.0); PLATELET COUNT, AUTOMATED 311 10^3/uL (150-450); RED BLOOD COUNT 4.61 10^6/uL (4.30-6.10); WHITE BLOOD COUNT 8.8 10^3/uL (4.0-10.0)
[2020-10-29 19:05] LABS: BLOOD UREA NITROGEN 10 MG/DL (7-18); CALCIUM LEVEL 8.1 MG/DL (8.5-10.1); CARBON DIOXIDE LEVEL 22 MEQ/L (21-32); CHLORIDE LEVEL 111 MEQ/L (98-107); GLOMERULAR FILTRATION RATE > 60.0 (>60); GLUCOSE, FASTING 172 MG/DL (70-100); NT-PRO BNP 444 PG/ML (<125); POTASSIUM SERUM 3.8 MEQ/L (3.5-5.1); SODIUM LEVEL 140 MEQ/L (136-145)
[2020-10-29] MEDS: QUEtiapine FUMARATE 100 MG TAB PO SCH (20:11)
[2020-10-29] MEDS: **NOTE PATIENT COMMENT** MISC XX SCH (21:00)
[2020-10-29] MEDS: traZODone 50 MG TAB PO PRN (21:09)
[2020-10-30 06:00] VITALS: BP 139/82
[2020-10-30] MEDS: cloNIDine 0.1MG TABLET PO SCH ×3 (08:11→20:12)
[2020-10-30] MEDS: busPIRone 10 MG TAB PO SCH ×2 (08:11→20:11)
[2020-10-30] MEDS: GABAPENTIN 400MG CAP PO SCH ×3 (08:11→20:11)
[2020-10-30] MEDS: NICOTINE 21MG/24HR 1 EA TRANSDERMAL TD SCH (08:11)
[2020-10-30] MEDS: DOCUSATE SODIUM 100MG CAPSULE PO SCH (08:12)
[2020-10-30] MEDS: FLUoxetine 20 MG CAP PO SCH (08:12)
[2020-10-30] MEDS: traMADol 50 MG TAB PO PRN ×2 (08:12→20:12)
[2020-10-30] MEDS: QUEtiapine FUMARATE 200 MG TAB PO SCH (08:12)
[2020-10-30] MEDS: buPROPion **XL** TABLET 150MG (WELLBUTRIN XL) PO SCH (08:12)
[2020-10-30] MEDS: LIDOCAINE 5% (LIDODERM) PATCH TD SCH (08:13)
[2020-10-30] MEDS: TOPIRAMATE (TopAMAX) 100 MG TAB PO SCH ×2 (08:13→20:11)
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
[2020-10-30 16:10] VITALS: BP 130/71
[2020-10-30] MEDS: QUEtiapine FUMARATE 100 MG TAB PO SCH (20:12)
[2020-10-30] MEDS: traZODone 50 MG TAB PO PRN (20:13)
[2020-10-30] MEDS: **NOTE PATIENT COMMENT** MISC XX SCH (21:08)
[2020-10-31 06:24] VITALS: BP 123/56
[2020-10-31] MEDS: LIDOCAINE 5% (LIDODERM) PATCH TD SCH (09:30)
[2020-10-31] MEDS: buPROPion **XL** TABLET 150MG (WELLBUTRIN XL) PO SCH (09:30)
[2020-10-31] MEDS: GABAPENTIN 400MG CAP PO SCH ×3 (09:30→20:23)
[2020-10-31] MEDS: QUEtiapine FUMARATE 200 MG TAB PO SCH (09:30)
[2020-10-31] MEDS: traMADol 50 MG TAB PO PRN ×2 (09:32→20:24)
[2020-10-31] MEDS: busPIRone 10 MG TAB PO SCH ×2 (09:32→20:23)
[2020-10-31] MEDS: cloNIDine 0.1MG TABLET PO SCH ×3 (09:32→20:23)
[2020-10-31] MEDS: DOCUSATE SODIUM 100MG CAPSULE PO SCH (09:32)
[2020-10-31] MEDS: NICOTINE 21MG/24HR 1 EA TRANSDERMAL TD SCH (09:33)
[2020-10-31] MEDS: FLUoxetine 20 MG CAP PO SCH (09:33)
[2020-10-31] MEDS: TOPIRAMATE (TopAMAX) 100 MG TAB PO SCH ×2 (09:33→20:23)
[2020-10-31 16:16] VITALS: BP 134/82
[2020-10-31] MEDS: QUEtiapine FUMARATE 100 MG TAB PO SCH (20:22)
[2020-10-31] MEDS: traZODone 50 MG TAB PO PRN (20:23)
[2020-10-31] MEDS: **NOTE PATIENT COMMENT** MISC XX SCH (21:15)
[2020-11-01 06:18] VITALS: BP 120/70
[2020-11-01] MEDS: FLUoxetine 20 MG CAP PO SCH (08:48)
[2020-11-01] MEDS: QUEtiapine FUMARATE 200 MG TAB PO SCH (08:49)
[2020-11-01] MEDS: cloNIDine 0.1MG TABLET PO SCH ×3 (08:49→23:14)
[2020-11-01] MEDS: buPROPion **XL** TABLET 150MG (WELLBUTRIN XL) PO SCH (08:49)
[2020-11-01] MEDS: GABAPENTIN 400MG CAP PO SCH ×3 (08:49→23:11)
[2020-11-01] MEDS: DOCUSATE SODIUM 100MG CAPSULE PO SCH (08:49)
[2020-11-01] MEDS: LIDOCAINE 5% (LIDODERM) PATCH TD SCH (08:49)
[2020-11-01] MEDS: TOPIRAMATE (TopAMAX) 100 MG TAB PO SCH ×2 (08:49→23:11)
[2020-11-01] MEDS: busPIRone 10 MG TAB PO SCH ×2 (08:49→23:11)
[2020-11-01] MEDS: NICOTINE 21MG/24HR 1 EA TRANSDERMAL TD SCH (08:50)
[2020-11-01 16:17] VITALS: BP 116/67
[2020-11-01] MEDS: **NOTE PATIENT COMMENT** MISC XX SCH (21:00)
[2020-11-01] MEDS: QUEtiapine FUMARATE 100 MG TAB PO SCH (23:11)
[2020-11-02] MEDS: GABAPENTIN 400MG CAP PO SCH ×3 (08:08→20:53)
[2020-11-02] MEDS: buPROPion **XL** TABLET 150MG (WELLBUTRIN XL) PO SCH (08:08)
[2020-11-02] MEDS: TOPIRAMATE (TopAMAX) 100 MG TAB PO SCH ×2 (08:08→20:54)
[2020-11-02] MEDS: QUEtiapine FUMARATE 200 MG TAB PO SCH (08:09)
[2020-11-02] MEDS: busPIRone 10 MG TAB PO SCH ×2 (08:09→20:53)
[2020-11-02] MEDS: FLUoxetine 20 MG CAP PO SCH (08:09)
[2020-11-02] MEDS: DOCUSATE SODIUM 100MG CAPSULE PO SCH (08:09)
[2020-11-02] MEDS: traMADol 50 MG TAB PO PRN (08:10)
[2020-11-02] MEDS: cloNIDine 0.1MG TABLET PO SCH ×3 (08:12→20:59)
[2020-11-02] MEDS: LIDOCAINE 5% (LIDODERM) PATCH TD SCH (08:12)
[2020-11-02] MEDS ORDERED: BUPR150T12 PO (08:16)
[2020-11-02] MEDS ORDERED: TOPA100T12 PO (08:16)
[2020-11-02] MEDS ORDERED: FLUO20CA22 PO (08:16)
[2020-11-02] MEDS ORDERED: GABA800T4 PO (08:16)
[2020-11-02] MEDS ORDERED: BUSP30TA PO (08:16)
[2020-11-02] MEDS ORDERED: QUET100T2 PO (08:16)
[2020-11-02] MEDS ORDERED: DOK1CAP7 PO (08:16)
[2020-11-02] MEDS ORDERED: QUET200T2 PO (08:16)
[2020-11-02] MEDS ORDERED: LIDO5TD TD (08:16)
[2020-11-02] MEDS ORDERED: IBUP200T45 PO (08:16)
[2020-11-02] MEDS: NICOTINE 21MG/24HR 1 EA TRANSDERMAL TD SCH (09:00)
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
[2020-11-02 18:49] VITALS: BP 107/56
[2020-11-02] MEDS: QUEtiapine FUMARATE 100 MG TAB PO SCH (20:53)
[2020-11-02] MEDS: **NOTE PATIENT COMMENT** MISC XX SCH (21:00)
[2020-11-03 07:14] VITALS: BP 109/67
[2020-11-03 08:07] VITALS: BP 118/71
[2020-11-03] MEDS: busPIRone 10 MG TAB PO SCH (08:07)
[2020-11-03] MEDS: cloNIDine 0.1MG TABLET PO SCH (08:07)
[2020-11-03] MEDS: GABAPENTIN 400MG CAP PO SCH (08:08)
[2020-11-03] MEDS: DOCUSATE SODIUM 100MG CAPSULE PO SCH (08:08)
[2020-11-03] MEDS: FLUoxetine 20 MG CAP PO SCH (08:08)
[2020-11-03] MEDS: buPROPion **XL** TABLET 150MG (WELLBUTRIN XL) PO SCH (08:08)
[2020-11-03] MEDS: QUEtiapine FUMARATE 200 MG TAB PO SCH (08:09)
[2020-11-03] MEDS: TOPIRAMATE (TopAMAX) 100 MG TAB PO SCH (08:09)
[2020-11-03] MEDS: LIDOCAINE 5% (LIDODERM) PATCH TD SCH (08:10)
[2020-11-03] MEDS: NICOTINE 21MG/24HR 1 EA TRANSDERMAL TD SCH (08:11)
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
== END 2020-11-03 11:30 | disposition home or self-care (01) | DRG 754 ==
LOC: M ED 05:21 → M ED INP 18:16 → M PSY 21:19
PROVIDERS: ADMIT Psychiatry & Neurology Child & Adolescent Psychiatry; ATTEND Psychiatry & Neurology Psychiatry
DX: F32.9 Major depressive disorder, single episode, unspecified (principal); F29 Unspecified psychosis not due to a substance or known physiological condition; F15.10 Other stimulant abuse, uncomplicated; F12.10 Cannabis abuse, uncomplicated; F43.21 Adjustment disorder with depressed mood; E86.0 Dehydration; M54.9 Dorsalgia, unspecified; G89.29 Other chronic pain; R45.851 Suicidal ideations; N17.9 Acute kidney failure, unspecified; F17.210 Nicotine dependence, cigarettes, uncomplicated; D72.829 Elevated white blood cell count, unspecified; D75.1 Secondary polycythemia; E87.5 Hyperkalemia; Z79.899 Other long term (current) drug therapy; R22.43 Localized swelling, mass and lump, lower limb, bilateral; K59.00 Constipation, unspecified; Z59.0 Homelessness; Z56.0 Unemployment, unspecified; Z81.8 Family history of other mental and behavioral disorders; Z98.1 Arthrodesis status; Z91.19 Patient's noncompliance with other medical treatment and regimen